=== PATIENT | female | born 1970 | race African-American/Black ===

== ENCOUNTER 2016-07-09 20:37 | Inpatient (IN) | payer BC, OTHER ==
[~2016-07-09] VITALS: Ht 165.1 cm; Wt 121.7 kg
[~2016-07-09 20:37] MED LIST: ATEN50TA8 PO; HYDR-3419 PO; HYDR25TA4 PO; LISI-461 PO
[2016-07-09] MEDS ORDERED: SODIUM CHLORIDE 0.9% 1000ML 1,000 ML IV SCH (20:38)
--- NOTE | 2016-07-09 20:55 | DIAGNOSTIC IMAGING REPORT ---
CT SCAN OF THE BRAIN WITHOUT IV CONTRAST CLINICAL HISTORY: Strokelike symptoms. COMPARISON STUDY: No priors. TECHNIQUE: Unenhanced axial CT scan of the brain is performed from the vertex to the skull base. Automated dose control exposure was utilized. CT DOSE: 1333.16 mGy.cm FINDINGS: Brain parenchyma: The brain parenchyma is normal in appearance. There is no hemorrhage, mass effect, or evidence of acute territorial ischemia by CT criteria. Joe-white matter is preserved. No extra-axial fluid collection is seen. Ventricles, sulci, cisterns: Normal in configuration. Intracranial vasculature: The visualized intracranial vasculature at the skull base is normal in appearance. Calvarium: Unremarkable. Sinuses and mastoids: The visualized paranasal sinuses are clear. The mastoid air cells are well pneumatized. Orbits: The bony orbits are grossly intact. IMPRESSION: There is no hemorrhage, mass effect, or evidence of acute territorial ischemia by CT criteria. Electronically signed by: Baldo Chapa M.D. 07/09/2016 8:53 PM Dictated Date/Time: 07/09/2016 8:52 PM
[2016-07-09] MEDS ORDERED: NiCARDipine IV 25 MG in SODIUM CHLORIDE 0.9% 250ML 240 ML IV STA (20:56)
[2016-07-09] MEDS ORDERED: NiCARDipine IV 25 MG in SODIUM CHLORIDE 0.9% 250ML 240 ML IV PRN ×2 (21:00→23:10)
--- NOTE | 2016-07-09 21:00 | EMERGENCY ROOM VISIT NOTE ---
History Report prepared by Jenniffer: Jayy Osullivan Under the Supervision of: Dr. Jimmie Hung D.O. First contact with patient: 20:40 Chief Complaint: STROKE SYMPTOMS Stated Complaint: STROKE ALERT History of Present Illness The patient is a 45 year old female who presents to the Emergency Room with complaints of persistent stroke-like symptoms that started an hour and twenty minutes ago. Per patient's family, the patient started not to act like herself and stare off into space. Then, the patient started to have some facial droop and began to slur her words. Per patient's family, the patient had been complaining of feeling fatigued and feeling nervous earlier in the day. The patient does have a history of hypertension and cholesterol. The patient denies any pain at this time. Per patient's family, there was no seizure-like activity at the onset of her symptoms. Source of History: patient, family Onset: one hour and twenty minutes ago Position: other (global) Timing: other (persistent) Associated Symptoms: + fatigue Note: Other associated symptoms: not looking herself, staring off into space, facial droop, feeling nervous throughout the day Denies: any pain Review of Systems See HPI for pertinent positives & negatives. A total of 10 systems reviewed and were otherwise negative. 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 [employer] Surgical Problems: (1) S/P cholecystectomy Family History Unknown Social History Marital Status: Housing Status: lives with family Occupation Status: employed Current/Historical Medications Scheduled [Blood Pressure], 1 TAB PO DAILY [Cholesterol], 1 TAB PO DAILY Allergies Coded Allergies: Penicillins (Verified Allergy, Unknown, RASH, 07/09/16) Procaine (Unverified Allergy, Unknown, RASH, 07/09/16) Physical Exam Vital Signs Date Time Temp Pulse Resp B/P Pulse Ox O2 Delivery O2 Flow Rate FiO2 07/09/16 22:20 103 30 182/99 93 07/09/16 22:15 37.0 115 18 151/108 96 Room Air 07/09/16 22:15 108 30 170/93 91 07/09/16 22:10 115 23 175/99 92 07/09/16 22:05 107 22 162/101 93 07/09/16 22:00 112 26 151/108 95 5/15/17 21:55 170/93 07/09/16 21:52 108 33 92 07/09/16 21:50 146/97 07/09/16 21:47 108 45 92 07/09/16 21:45 169/107 07/09/16 21:43 200/109 07/09/16 21:42 126 19 218/137 95 07/09/16 21:39 178/120 07/09/16 21:37 109 30 93 07/09/16 21:35 188/115 07/09/16 21:33 37.0 94 18 207/101 96 Room Air 07/09/16 21:32 107 28 92 07/09/16 21:30 203/114 07/09/16 21:27 99 20 96 07/09/16 21:25 200/117 07/09/16 21:22 98 94 07/09/16 21:19 94 Room Air 07/09/16 21:17 96 95 07/09/16 21:16 199/108 07/09/16 21:12 95 207/119 95 07/09/16 21:07 93 96 07/09/16 21:02 86 96 07/09/16 21:01 216/112 07/09/16 20:57 90 07/09/16 20:57 91 95 07/09/16 20:54 207/101 Physical Exam GENERAL: Patient is awake, alert, and somewhat anxious appearing. EYES: The conjunctivae are clear. The pupils are round and reactive. EARS, NOSE, MOUTH AND THROAT: The nose is without any evidence of any deformity. Mucous membranes are moist tongue is midline NECK: The neck is nontender and supple. RESPIRATORY: Normal respiratory effort is noted there is no evidence of wheezing rhonchi or rales CARDIOVASCULAR: Regular rate and rhythm noted there no murmurs rubs or gallops normal S1 normal S2 GASTROINTESTINAL: The abdomen is soft. Bowel sounds are present in all quadrants. Abdomen is nontender MUSCULOSKELETAL/EXTREMITIES: There is no evidence of gross deformity full range of motion is noted in the hips and shoulders SKIN: There is no obvious evidence of any rash. There are no petechiae, pallor or cyanosis noted. 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 Medical Decision & Procedures ER Provider Diagnostic Interpretation: Radiology results as stated below per my review and radiologist interpretation: CT SCAN OF THE BRAIN WITHOUT IV CONTRAST CLINICAL HISTORY: Strokelike symptoms. COMPARISON STUDY: No priors. TECHNIQUE: Unenhanced axial CT scan of the brain is performed from the vertex to the skull base. Automated dose control exposure was utilized. CT DOSE: 1333.16 mGy.cm FINDINGS: Brain parenchyma: The brain parenchyma is normal in appearance. There is no hemorrhage, mass effect, or evidence of acute territorial ischemia by CT criteria. Joe-white matter is preserved. No extra-axial fluid collection is seen. Ventricles, sulci, cisterns: Normal in configuration. Intracranial vasculature: The visualized intracranial vasculature at the skull base is normal in appearance. Calvarium: Unremarkable. Sinuses and mastoids: The visualized paranasal sinuses are clear. The mastoid air cells are well pneumatized. Orbits: The bony orbits are grossly intact. IMPRESSION: There is no hemorrhage, mass effect, or evidence of acute territorial ischemia by CT criteria. Electronically signed by: Baldo Chapa M.D. 07/09/2016 8:53 PM Dictated Date/Time: 07/09/2016 8:52 PM SINGLE VIEW CHEST CLINICAL HISTORY: Strokelike symptoms. FINDINGS: An AP, portable, upright chest radiograph is obtained. No prior studies are available for comparison at the time of dictation. The examination is degraded by portable technique, large body habitus, apical lordotic positioning, and patient rotation. The cardiomediastinal silhouette is unremarkable. The lungs and pleural spaces are clear. No pneumothorax is seen. The bony thorax is grossly intact. IMPRESSION: No active disease in the chest. Electronically signed by: Baldo Chapa M.D. 07/09/2016 9:20 PM Dictated Date/Time: 07/09/2016 9:20 PM Laboratory Results 07/09/16 21:05 Red Blood Count 4.19, Mean Corpuscular Volume 88.5, Mean Corpuscular Hemoglobin 28.9, Mean Corpuscular Hemoglobin Concent 32.6, Mean Platelet Volume 8.3, Neutrophils (%) (Auto) 62.0, Lymphocytes (%) (Auto) 29.7, Monocytes (%) (Auto) 6.0, Eosinophils (%) (Auto) 1.7, Basophils (%) (Auto) 0.2, Neutrophils # (Auto) 6.08, Lymphocytes # (Auto) 2.92, Monocytes # (Auto) 0.59, Eosinophils # (Auto) 0.17, Basophils # (Auto) 0.02 07/09/16 21:05 Test 07/09/16 20:53 07/09/16 21:05 07/09/16 21:14 07/09/16 21:45 Bedside Prothrombin Time INR 1.1 (0.9-1.1) Bedside Glucose 170 mg/dl (70-90) White Blood Count 9.82 K/uL (4.8-10.8) Red Blood Count 4.19 M/uL (4.2-5.4) Hemoglobin 12.1 g/dL (12.0-16.0) Hematocrit 37.1 % (37-47) Mean Corpuscular Volume 88.5 fL (80-100) Mean Corpuscular Hemoglobin 28.9 pg (25-34) Mean Corpuscular Hemoglobin Concent 32.6 g/dl (32-36) Platelet Count 426 K/uL (130-400) Mean Platelet Volume 8.3 fL (7.4-10.4) Neutrophils (%) (Auto) 62.0 % Lymphocytes (%) (Auto) 29.7 % Monocytes (%) (Auto) 6.0 % Eosinophils (%) (Auto) 1.7 % Basophils (%) (Auto) 0.2 % Neutrophils # (Auto) 6.08 K/uL (1.4-6.5) Lymphocytes # (Auto) 2.92 K/uL (1.2-3.4) Monocytes # (Auto) 0.59 K/uL (0.11-0.59) Eosinophils # (Auto) 0.17 K/uL (0-0.5) Basophils # (Auto) 0.02 K/uL (0-0.2) RDW Standard Deviation 41.2 fL (36.4-46.3) RDW Coefficient of Variation 12.8 % (11.5-14.5) Immature Granulocyte % (Auto) 0.4 % Immature Granulocyte # (Auto) 0.04 K/uL (0.00-0.02) Prothrombin Time 10.7 SECONDS (9.0-12.0) Prothromb Time International Ratio 1.0 (0.9-1.1) Activated Partial Thromboplast Time 28.4 SECONDS (21.0-31.0) Partial Thromboplastin Ratio 1.1 Est Creatinine Clear Calc Drug Dose 78.9 ml/min Estimated GFR () 62.8 Estimated GFR (Non- 54.2 BUN/Creatinine Ratio 12.3 (10-20) Calcium Level 9.6 mg/dl (8.5-10.1) Total Creatine Kinase 247 U/L (26-192) Creatine Kinase MB 1.9 ng/ml (0.5-3.6) Creatine Kinase MB Ratio 0.8 (0-3.0) Troponin I < 0.015 ng/ml (0-0.045) Bedside Hemoglobin 12.2 g/dl (12.0-16.0) Bedside Hematocrit 36 % (37-47) Bedside Sodium 141 mEq/L (135-144) Bedside Potassium 4.3 mEq/L (3.3-5.0) Bedside Chloride 101 mEq/L (101-112) Bedside Total CO2 24 mEq/l (24-31) Anion Gap 20.0 mmol/L (16-25) Bedside Blood Urea Nitrogen 14 mg/dl (7-18) Bedside Creatinine 1.1 mg/dl (0.6-1.3) Bedside Glucose (other) 177 mg/dl (70-99) Bedside Ionized Calcium (Alberto) 1.17 mmol/l (1.12-1.32) Urine Color YELLOW Urine Appearance CLOUDY (CLEAR) Urine pH 6.5 (4.5-7.5) Urine Specific [place] 1.016 (1.000-1.030) Urine Protein NEG (NEG) Urine Glucose (UA) NEG (NEG) Urine Ketones NEG (NEG) Urine Occult Blood 3+ (NEG) Urine Nitrite NEG (NEG) Urine Bilirubin NEG (NEG) Urine Urobilinogen NEG (NEG) Urine Leukocyte Esterase MODERATE (NEG) Urine WBC (Auto) 10-30 /hpf (0-5) Urine RBC (Auto) 5-10 /hpf (0-4) Urine Hyaline Casts (Auto) 1-5 /lpf (0-5) Urine Epithelial Cells (Auto) >30 /lpf (0-5) Urine Bacteria (Auto) NEG (NEG) Urine Opiates Screen NEG (NEG) Urine Methadone, Qualitative NEG (NEG) Urine Barbiturates NEG (NEG) Urine Phencyclidine (PCP) Level NEG (NEG) Ur Amphetamine/Methamphetamine NEG (NEG) MDMA (Ecstasy) Screen NEG (NEG) Urine Benzodiazepines Screen NEG (NEG) Urine Cocaine Metabolite NEG (NEG) Urine Marijuana (THC) NEG (NEG) Laboratory results per my review. Medications Administered Medications (Trade) Dose Ordered Sig/Douglas Route Start Time Stop Time Status Last Admin Dose Admin Nicardipine HCl 25 mg/Sodium Chloride 250 ml @ 0 mls/hr Q0M PRN IV 07/09/16 21:00 07/09/16 23:23 DC 07/09/16 21:15 5 MLS/HR Alteplase, Recombinant 81 mg/ Empty Bag 81 ml @ 81 mls/hr TODAY@2114 IV 07/09/16 21:15 07/09/16 22:14 DC 07/09/16 21:54 81 MLS/HR Alteplase, Recombinant/ Syringe (Activase Inj/ Syringe) 18 ml @ 9 mls/min TODAY@2114 IV 07/09/16 21:15 07/09/16 21:16 DC 07/09/16 21:54 9 MLS/MIN ECG Indication: other Rate (beats per minute): 94 Rhythm: normal sinus Findings: no ectopy, other (no acute ST segment abnormality, LCH noted by voltage criteria) Comparison ECG Date: Increased rate otherwise no change from June 27, 2012. ED Course 2051: The patient was evaluated in room A1. A complete history and physical examination were performed. 2037: Ordered NSS 1000 ml @ 50 mls/hr IV. 2052: At this time, I discussed the patient's case with Dr. Rosenthal - Neurology Telemedicine [facility] and he evaluated the patient. 2055: Ordered Nicardipine HCl 25 mg/ NSS 250 ml @ 0 mls/hr IV. 2099: Ordered Nicardipine HCl 25 mg/ NSS 250 ml @ 0 mls/hr IV. 2100: At this time, TPA was ordered. 2114: Ordered Alteplase Recombinant 9 mg/ Syringe 18 ml @ 9 mls/min IV, Alteplase Recombinant 81 mg/ Empty Bag 81 ml @ 81 mls/hr IV. 2144: Ordered Ativan Inj 0.5 mg IV, Ativan Inj 2 mg .ROUTE, Labetalol HCl 20 mg IV. 2149: At this time, TPA was administered to the patient. 2154: At this time, I discussed the patient's case with Dr. Rosenthal - Neurology Telemedicine [facility] and he recommended admitting the patient to medicine for treatment and continuing a further stroke work-up as a patient. 2213: At this time, I discussed the patient's case with Dr. Avalos - [facility] and he agreed to accept the patient for further evaluation. Medical Decision Differential diagnosis: Etiologies such as metabolic, infection, hypo/hyperglycemia, electrolyte abnormalities, cardiac sources, intracerebral event, toxicologic, neurologic, as well as others were entertained. Nursing notes reviewed. Additional history is obtained from the EMS providers. The patient is a 45-year-old female who presented to the emergency department with strokelike syndrome. The patient had an acute onset of slurred speech left facial droop and left upper and lower extremity weakness. The patient presented to the emergency department within 3 hours of her symptoms. Initial CAT scan did not show any acute hemorrhage. Because of the patient's symptoms and her history I do feel this is consistent with an ischemic stroke. For this reason she was made a heart alert prior to arrival and was evaluated by the [facility] tele stroke neurologist. The patient was found have very elevated blood pressure in this was controlled with IV blood pressure medications. When her blood pressure was improved she was felt to be a good candidate for TPA. This was started in the emergency department. She was reevaluated multiple times. I discussed patient's laboratory and radiographic studies with her and her family members. She was also consented for the TPA and she understands the risks and benefits of this medication. I discussed his case with the on-call [facility] hospitalist group. They've agreed to evaluate the patient in the emergency department for further management and disposition. Consults Time Called: 2047 Consulting Physician: Dr. Rosenthal - Neurology Telemedicine [facility] Returned Call: [phone] At this time, I discussed the patient's case with Dr. Rosenthal and he evaluated the patient. Additional Consults: Time Called: 2149 Consulted Physician: Dr. Rosenthal - Neurology Telemedicine [facility] Returned Call: [phone] Additional Comments: At this time, I discussed the patient's case with and he recommended admitting the patient to medicine for treatment and continuing a further stroke work-up as a patient. Time Called: 2208 Consulted Physician: Dr. Avalos - Hospitalist [facility] Returned Call: [phone] Additional Comments: At this time, I discussed the patient's case with Dr. Avalos and he agreed to accept the patient for further evaluation. Impression Primary Impression: Acute CVA (cerebrovascular accident) Critical Care I have personally spent greater than 60 minutes of critical care time in the direct management of this patient. This includes bedside care, interpretation of diagnostic studies, and testing, discussion with consultants, patient, and family members, and other required patient management activities. This 60 minutes is in excess of all separately billable procedures. Scribe Attestation The scribe's documentation has been prepared under my direction and personally reviewed by me in its entirety. I confirm that the note above accurately reflects all work, treatment, procedures, and medical decision making performed by me. Departure Information Dispostion Being Evaluated By Hospitalist Referrals No Doctor, Assigned (PCP) Stroke History Time Last Known Well 193 Stroke t-PA Criteria Reviewed Meets criteria for t-PA Reason t-PA Not Given Treatment provided - N/A
[2016-07-09] MEDS ORDERED: CHOLESTEROL PO (21:10)
[2016-07-09] MEDS ORDERED: BLOOD PRESSURE PO (21:10)
[2016-07-09] MEDS ORDERED: SET 2260-0500 IV ONE (21:15)
[2016-07-09] MEDS ORDERED: ALTEPLASE IV SCH (21:15)
[2016-07-09] MEDS ORDERED: RECOMBINANT IV SCH (21:15)
[2016-07-09] MEDS ORDERED: ALTEPLASE, RECOMBINANT INJ 81 MG in EMPTY BAG 0 ML IV SCH (21:15)
[2016-07-09 21:19] LABS: BASO % 0.2 %; BASO ABS # 0.02 K/uL (0-0.2); COMPLETE YES; EOS % 1.7 %; HEMATOCRIT 37.1 % (37-47); IG% 0.4 %; LYMPH % 29.7 %; LYMPH ABS # 2.92 K/uL (1.2-3.4); MEAN CELL VOLUME 88.5 fL (80-100); MEAN CORPUSCULAR HEMOGLOBIN 28.9 pg (25-34); MEAN CORPUSCULAR HGB CONC 32.6 g/dl (32-36); MEAN PLATELET VOLUME 8.3 fL (7.4-10.4); PLATELET COUNT 426 K/uL (130-400); RED BLOOD COUNT 4.19 M/uL (4.2-5.4); WHITE BLOOD COUNT 9.82 K/uL (4.8-10.8)
--- NOTE | 2016-07-09 21:21 | DIAGNOSTIC IMAGING REPORT ---
SINGLE VIEW CHEST CLINICAL HISTORY: Strokelike symptoms. FINDINGS: An AP, portable, upright chest radiograph is obtained. No prior studies are available for comparison at the time of dictation. The examination is degraded by portable technique, large body habitus, apical lordotic positioning, and patient rotation. The cardiomediastinal silhouette is unremarkable. The lungs and pleural spaces are clear. No pneumothorax is seen. The bony thorax is grossly intact. IMPRESSION: No active disease in the chest. Electronically signed by: Baldo Chapa M.D. 07/09/2016 9:20 PM Dictated Date/Time: 07/09/2016 9:20 PM
[2016-07-09 21:28] LABS: ISTAT CREATININE 1.1 mg/dl (0.6-1.3); ISTAT HEMOGLOBIN 12.2 g/dl (12.0-16.0); ISTAT IONIZED CALCIUM 1.17 mmol/l (1.12-1.32)
[2016-07-09 21:30] LABS: PARTIAL THROMBOPLASTIN RATIO 1.1; PROTHROMBIN TIME (PATIENT) 10.7 SECONDS (9.0-12.0)
[2016-07-09 21:34] LABS: BLOOD UREA NITROGEN 15 mg/dl (7-18); BUN/CREATININE RATIO 12.3 (10-20); CARBON DIOXIDE 28 mmol/L (21-32); CHLORIDE 105 mmol/L (98-107); GLUCOSE 174 mg/dl (70-99); POTASSIUM 4.3 mmol/L (3.5-5.1); SODIUM 141 mmol/L (136-145)
[2016-07-09 21:40] LABS: CKMB/CK RATIO 0.8 (0-3.0)
[2016-07-09] MEDS ORDERED: LORAZEPAM 2 MG/ML 1 ML VIAL IV STA (21:45)
[2016-07-09] MEDS ORDERED: LABETALOL HCL IV 5 MG/ML 20ML IV STA (21:46)
[2016-07-09] MEDS ORDERED: LORAZEPAM 2 MG/ML 1 ML VIAL ONE (21:46)
[2016-07-09 21:58] LABS: CALCIUM 9.6 mg/dl (8.5-10.1)
[2016-07-09 22:02] LABS: URINE APPEARANCE CLOUDY (CLEAR); URINE BILIRUBIN NEG (NEG); URINE COLOR YELLOW; URINE EPITHELIAL CELL AUTO >30 /lpf (0-5); URINE NITRITE NEG (NEG); URINE PH 6.5 (4.5-7.5); URINE SPECIFIC GRAVITY 1.016 (1.000-1.030); UROBILINOGEN NEG (NEG); ZZUR CULT IF INDIC CLEAN CATCH YES
[2016-07-09 22:06] LABS: MANUAL MICROSCOPIC REQUIRED? NO; REVIEW REQ? NO
[2016-07-09 22:15] VITALS: BP 151/108; PULSE 115; TEMP 37; O2SAT 96; BMI 46.8
[2016-07-09 22:26] LABS: BENZODIAZEPINE, URINE NEG (NEG); COCAINE,URINE NEG (NEG); PHENCYCLIDINE, URINE NEG (NEG)
[2016-07-09] MEDS ORDERED: PHARMACIST DISCHARGE MED REC CONSULT PRN ×3 (22:30→23:00)
[2016-07-09 23:12] VITALS: BP 144/93; PULSE 115; TEMP 37; O2SAT 92
[2016-07-09 23:30] VITALS: BP 143/81; PULSE 102; O2SAT 93
--- NOTE | 2016-07-09 23:31 | History and Physical ---
History & Physical Date & Time of Service: July 09, 2016 at 22:43 Chief Complaint: Stroke Alert Primary Care Physician: No Doctor, Assigned History of Present Illness Source: patient, hospital records Mrs Vazquez is a 45 year old female who presented to the ER as a stroke alert after developing slurred speech, left upper extremity weakness and left facial droop around 19:30. She called EMS and in the ER was hypertensive. After labetalol and nicardipine given she was determined to be a candidate for tPA. She notes since given tPA in the ER her slurred speech and left facial droop have improved but she has not noticed a difference in her left upper extremity weakness. She notes having uncontrolled hypertension since her 20's and regularly runs over 200 in the PCPs office. She gets intermittent sweating and vision blurring when her blood pressure does run high. She is due a workup for obstructive sleep apnea but does not think she has had any other workup for secondary causes of hypertension. She also notes getting short of breath on exertion and cannot walk a mile without becoming short of breath. 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 She notes recent testing for diabetes was negative. She denies smoking. She has not had any previous stroke, DVT or PE. Past Medical/Surgical History Medical Problems: (1) Fibroids Status: Resolved (2) Hyperlipidemia Status: Chronic (3) Hypertension Status: Chronic Surgical Problems: (1) S/P cholecystectomy Status: Resolved Family History Unknown No family history of stroke, ME, DVT/PE, sarcoidosis, secondary hypertension, sade's, edel disease Social History Smoking Status: Never Smoker Marital Status: Housing status: lives with family Occupational Status: employed Allergies Coded Allergies: Penicillins (Verified Allergy, Unknown, RASH, 07/09/16) Procaine (Unverified Allergy, Unknown, RASH, 07/09/16) Home Medications Scheduled Atorvastatin Calcium (Lipitor), 1 TAB PO DAILY Valsartan/Hctz (Diovan Hct 160MG/12.5MG), 1 TAB PO DAILY [Blood Pressure], 1 TAB PO DAILY [Cholesterol], 1 TAB PO DAILY Review of Systems Constitutional: No chills, No fever Respiratory: + cough (productive for the last month), + dyspnea on exertion ( see HPI) Cardiovascular: + palpitations (intermittent when she has increased stress without associated symptoms), No PND, No chest pain, No claudication, No edema, No orthopnea Abdomen: No GI bleeding, No constipation, No diarrhea, No nausea, No pain, No vomiting Genitourinary - Female: + dysmenorrhea (irregular periods since having her fibroids removed), No dysuria, No hematuria, No urinary frequency, No urinary incontinence, No urinary retention, No urinary urgency Neurologic: + problem reported (see HPI), + weakness (LUE), No balance problems , No numbness/tingling Psychiatric: No substance abuse Endocrine: No excessive thirst, No excessive urination, No fatigue Hematologic / Lymphatic: No abnormal bleeding/bruising (irregular period noted above) Integumentary: No itch, No rash Physical Exam Vital Signs Date Time Temp Pulse Resp B/P Pulse Ox O2 Delivery O2 Flow Rate FiO2 07/09/16 22:26 167/91 07/09/16 22:25 104 29 93 07/09/16 22:20 103 30 182/99 93 07/09/16 22:15 37.0 115 18 151/108 96 Room Air 07/09/16 22:15 108 30 170/93 91 07/09/16 22:10 115 23 175/99 92 07/09/16 22:05 107 22 162/101 93 07/09/16 22:00 112 26 151/108 95 07/09/16 21:55 170/93 07/09/16 21:52 108 33 92 07/09/16 21:50 146/97 07/09/16 21:47 108 45 92 07/09/16 21:45 169/107 07/09/16 21:43 200/109 07/09/16 21:42 126 19 218/137 95 07/09/16 21:39 178/120 07/09/16 21:37 109 30 93 07/09/16 21:35 188/115 07/09/16 21:33 37.0 94 18 207/101 96 Room Air 07/09/16 21:32 107 28 92 07/09/16 21:30 203/114 07/09/16 21:27 99 20 96 07/09/16 21:25 200/117 07/09/16 21:22 98 94 07/09/16 21:19 94 Room Air 07/09/16 21:17 96 95 07/09/16 21:16 199/108 07/09/16 21:12 95 207/119 95 07/09/16 21:07 93 96 07/09/16 21:02 86 96 07/09/16 21:01 216/112 07/09/16 20:57 90 07/09/16 20:57 91 95 07/09/16 20:54 207/101 General Appearance: no apparent distress, + obese (morbidly) Head: normocephalic, atraumatic Eyes: normal inspection, PERRL, EOMI (although she does not maintain eye contact with talking) Neck: no carotid bruits, trachea midline Respiratory/Chest: chest non-tender, lungs clear, normal breath sounds (quiet likely due to body habitus), no respiratory distress, no accessory muscle use Cardiovascular: regular rate, rhythm, no edema, no murmur, normal peripheral pulses Abdomen/GI: normal bowel sounds, non tender, soft, + pertinent finding (obese) Back: no CVA tenderness Extremities/Musculoskelatal: no calf tenderness, normal capillary refill, no pedal edema, normal range of motion Neurologic/Psych: alert, oriented x 3, + abnormal customs and immigration officer II-XII (mild left sided facial droop and slurring of speech which she reports has been improving, difficulty with ka, ka, ka on speech examination, unable to assess uvula due to tongue size), + motor weakness, + depressed affect (blank) Skin: normal color, warm/dry, no rash Diagnostics Laboratory Results Results Past 24 Hours Test 07/09/16 20:53 07/09/16 21:05 07/09/16 21:14 07/09/16 21:45 Range/Units Bedside Prothrombin Time INR 1.1 0.9-1.1 Bedside Glucose 170 70-90 mg/dl White Blood Count 9.82 4.8-10.8 K/uL Red Blood Count 4.19 4.2-5.4 M/uL Hemoglobin 12.1 12.0-16.0 g/dL Hematocrit 37.1 37-47 % Mean Corpuscular Volume 88.5 80-100 fL Mean Corpuscular Hemoglobin 28.9 25-34 pg Mean Corpuscular Hemoglobin Concent 32.6 32-36 g/dl Platelet Count 426 130-400 K/uL Mean Platelet Volume 8.3 7.4-10.4 fL Neutrophils (%) (Auto) 62.0 % Lymphocytes (%) (Auto) 29.7 % Monocytes (%) (Auto) 6.0 % Eosinophils (%) (Auto) 1.7 % Basophils (%) (Auto) 0.2 % Neutrophils # (Auto) 6.08 1.4-6.5 K/uL Lymphocytes # (Auto) 2.92 1.2-3.4 K/uL Monocytes # (Auto) 0.59 0.11-0.59 K/uL Eosinophils # (Auto) 0.17 0-0.5 K/uL Basophils # (Auto) 0.02 0-0.2 K/uL RDW Standard Deviation 41.2 36.4-46.3 fL RDW Coefficient of Variation 12.8 11.5-14.5 % Immature Granulocyte % (Auto) 0.4 % Immature Granulocyte # (Auto) 0.04 0.00-0.02 K/uL Prothrombin Time 10.7 9.0-12.0 SECONDS Prothromb Time International Ratio 1.0 0.9-1.1 Activated Partial Thromboplast Time 28.4 21.0-31.0 SECONDS Partial Thromboplastin Ratio 1.1 Sodium Level 141 136-145 mmol/L Potassium Level 4.3 3.5-5.1 mmol/L Chloride Level 105 98-107 mmol/L Carbon Dioxide Level 28 21-32 mmol/L Anion Gap 8.0 20.0 16-25 mmol/L Blood Urea Nitrogen 15 7-18 mg/dl Creatinine 1.20 0.60-1.20 mg/dl Est Creatinine Clear Calc Drug Dose 78.9 ml/min Estimated GFR () 62.8 Estimated GFR (Non- 54.2 BUN/Creatinine Ratio 12.3 10-20 Random Glucose 174 70-99 mg/dl Calcium Level 9.6 8.5-10.1 mg/dl Total Creatine Kinase 247 26-192 U/L Creatine Kinase MB 1.9 0.5-3.6 ng/ml Creatine Kinase MB Ratio 0.8 0-3.0 Troponin I < 0.015 0-0.045 ng/ml Bedside Hemoglobin 12.2 12.0-16.0 g/dl Bedside Hematocrit 36 37-47 % Bedside Sodium 141 135-144 mEq/L Bedside Potassium 4.3 3.3-5.0 mEq/L Bedside Chloride 101 101-112 mEq/L Bedside Total CO2 24 24-31 mEq/l Bedside Blood Urea Nitrogen 14 7-18 mg/dl Bedside Creatinine 1.1 0.6-1.3 mg/dl Bedside Glucose (other) 177 70-99 mg/dl Bedside Ionized Calcium ([place]) 1.17 1.12-1.32 mmol/l Urine Color YELLOW Urine Appearance CLOUDY CLEAR Urine pH 6.5 4.5-7.5 Urine Specific [place] 1.016 1.000-1.030 Urine Protein NEG NEG Urine Glucose (UA) NEG NEG Urine Ketones NEG NEG Urine Occult Blood 3+ NEG Urine Nitrite NEG NEG Urine Bilirubin NEG NEG Urine Urobilinogen NEG NEG Urine Leukocyte Esterase MODERATE NEG Urine WBC (Auto) 10-30 0-5 /hpf Urine RBC (Auto) 5-10 0-4 /hpf Urine Hyaline Casts (Auto) 1-5 0-5 /lpf Urine Epithelial Cells (Auto) >30 0-5 /lpf Urine Bacteria (Auto) NEG NEG Urine Opiates Screen NEG NEG Urine Methadone, Qualitative NEG NEG Urine Barbiturates NEG NEG Urine Phencyclidine (PCP) Level NEG NEG Ur Amphetamine/Methamphetamine NEG NEG MDMA (Ecstasy) Screen NEG NEG Urine Benzodiazepines Screen NEG NEG Urine Cocaine Metabolite NEG NEG Urine Marijuana (THC) NEG NEG Microbiology Results 07/09/16 Urine Culture, Received Pending Diagnostic Radiology SINGLE VIEW CHEST CLINICAL HISTORY: Strokelike symptoms. FINDINGS: An AP, portable, upright chest radiograph is obtained. No prior studies are available for comparison at the time of dictation. The examination is degraded by portable technique, large body habitus, apical lordotic positioning, and patient rotation. The cardiomediastinal silhouette is unremarkable. The lungs and pleural spaces are clear. No pneumothorax is seen. The bony thorax is grossly intact. IMPRESSION: No active disease in the chest. Electronically signed by: Baldo Chapa M.D. 07/09/2016 9:20 PM Dictated Date/Time: 07/09/2016 9:[address] SCAN OF THE BRAIN WITHOUT IV CONTRAST CLINICAL HISTORY: Strokelike symptoms. COMPARISON STUDY: No priors. TECHNIQUE: Unenhanced axial CT scan of the brain is performed from the vertex to the skull base. Automated dose control exposure was utilized. CT DOSE: 1333.16 mGy.cm FINDINGS: Brain parenchyma: The brain parenchyma is normal in appearance. There is no hemorrhage, mass effect, or evidence of acute territorial ischemia by CT criteria. Joe-white matter is preserved. No extra-axial fluid collection is seen. Ventricles, sulci, cisterns: Normal in configuration. Intracranial vasculature: The visualized intracranial vasculature at the skull base is normal in appearance. Calvarium: Unremarkable. Sinuses and mastoids: The visualized paranasal sinuses are clear. The mastoid air cells are well pneumatized. Orbits: The bony orbits are grossly intact. IMPRESSION: There is no hemorrhage, mass effect, or evidence of acute territorial ischemia by CT criteria. Electronically signed by: Baldo Chapa M.D. 07/09/2016 8:53 PM Dictated Date/Time: 07/09/2016 8:52 PM EKG 108 bpm, Sinus tachycardia, LVH, Non specific T wave abnormality Impression Assessment and Plan 45 year old with uncontrolled hypertension and hyperlipidemia presents to the ER left sided facial droop and slurred speech s/p stroke call with administration of tPA at 3 hours 20 minutes post symptoms (21:52 07/09/16). CVA s/p tPA - recommendations based on [facility] neurologist Dr Rosenthal - admit to ICU, discussed with green feed attendant Dr Callejas - MRI brain combo, MRA head, MRA neck combo - CT head 24 hours after initial scan - Stroke protocol for neuro checks s/p tPA protocol - CBC, CMP. lipid profile, coags, UA, HbA1C - EKG + echo - NPO until Speech consult - IVF overnight - aim glucose <150 - keep sBP <180 dBP <105 post tPA treatment - Consult neurology Hypertension - aim BP <180 and dBP <105 as above, started on nicardipine drip in the ER so will continue this as current controlling BP well. - hold home medications, she was on three medications as outpatient but unsure exactly which ones currently - will need workup for secondary causes of hypertension, likely she has some PRITI and has a sleep study pending for this. Hyperlipidemia - atorvastatin 80mg PO daily Shortness of breath on exertion - Deconditioning vs. obesity hypoventilation vs. PRITI vs. heart failure. She will be getting a resting echocardiogram and likely has some LVH as per EKG. Consider outpatient stress echo if resting echo is normal. VTE Prophylaxis - SCDs for first [address] head Code - Full Disposition - admit to ICU Level of Care Critical Care Advanced Directives Existing Living Will: No Existing Power of Marble Polisher Hand: No Resuscitation Status FULL RESUSCITATION VTE Prophylaxis VTE Risk Assessment Done? Y/N: Yes Risk Level: Moderate Given or contraindicated: SCD's, Contraindicated (tPA administration, no anticogulation in first 24 hours) Resident Tracking Resident Involvement: Resident Care Provided Care Provided: Adult [facility] Medicine Assessment and Plan Attending Addendum: I have physically seen and examined this patient, have directed their medical care, have supervised the medical residents activities, and agree with the H&P as noted above, with the following changes: NONE
[2016-07-09 23:45] VITALS: BP 140/71; PULSE 98; O2SAT 92
[2016-07-10] VITALS (77 sets, daily range): BP systolic 94–189; BP diastolic 41–126; PULSE 67–108; TEMP 36.7–37; O2SAT 90–99
[2016-07-10] MEDS ORDERED: INSULIN REGULAR IV SCH (00:15)
[2016-07-10] MEDS: SODIUM CHLORIDE 0.9% 1000ML 1,000 ML IV SCH ×2 (00:15→19:52)
[2016-07-10 06:31] LABS: BASO % 0.3 %; BASO ABS # 0.03 K/uL (0-0.2); COMPLETE YES; EOS % 1.6 %; HEMATOCRIT 36.7 % (37-47); IG% 0.3 %; LYMPH % 29.5 %; LYMPH ABS # 2.93 K/uL (1.2-3.4); MEAN CORPUSCULAR HEMOGLOBIN 29.2 pg (25-34); MEAN CORPUSCULAR HGB CONC 32.4 g/dl (32-36); MEAN PLATELET VOLUME 8.4 fL (7.4-10.4); MONO % 4.3 %; PLATELET COUNT 426 K/uL (130-400); RED BLOOD COUNT 4.08 M/uL (4.2-5.4); WHITE BLOOD COUNT 9.93 K/uL (4.8-10.8)
[2016-07-10 06:39] LABS: PROTHROMBIN TIME (PATIENT) 10.6 SECONDS (9.0-12.0)
[2016-07-10 07:05] LABS: ALT/SGPT 21 U/L (12-78); AST/SGOT 11 U/L (15-37); BLOOD UREA NITROGEN 18 mg/dl (7-18); BUN/CREATININE RATIO 16.6 (10-20); CALCIUM 9.1 mg/dl (8.5-10.1); CARBON DIOXIDE 28 mmol/L (21-32); CHLORIDE 106 mmol/L (98-107); GLUCOSE 130 mg/dl (70-99); POTASSIUM 4.3 mmol/L (3.5-5.1); SODIUM 140 mmol/L (136-145)
[2016-07-10 07:10] LABS: ALB/GLOB RATIO 0.8 (0.9-2); ALKALINE PHOSPHATASE 72 U/L (45-117); CHOLESTEROL 228 mg/dl (0-200); CHOLESTEROL/HDL RATIO 3.7; HDL CHOLESTEROL 62 mg/dl; LDL CHOLESTEROL CALCULATED 140 mg/dl; TRIGLYCERIDES 129 mg/dl (0-150); VERY LOW DENSITY LIPOPROT CALC 26 mg/dl
[2016-07-10 07:18] LABS: ESTIMATED AVERAGE GLUCOSE 137 mg/dl; HA1C FLAG Normal (Normal)
--- NOTE | 2016-07-10 11:17 | Neurology Consultation ---
Neurology Consultation Date of Consultation: July 10, 2016. Attending Physician: Abran Hong D.O. Primary Care Physician: No Doctor, Assigned Reason for Consultation: Stroke History of Present Illness Source: patient, hospital records The patient is a 45-year-old female who was admitted to the hospital yesterday for further evaluation and treatment of a probable stroke. She had presented to the emergency department with a complaint of left arm weakness that began about 90 minutes prior to arrival. She was noted to have a left facial droop and associated slurred speech as well. Past medical history notable for poorly controlled hypertension. Her blood pressure was 207/101 at the time of presentation. I reviewed the images and radiologist's impression of her CT of the head. The study is negative for hemorrhage or other acute abnormalities. A tele-stroke consultation was obtained and TPA was administered. She has subsequently been admitted to the intensive care unit for further monitoring and treatment. The patient continues to complain of left upper extremity weakness. She has been having subtle difficulty with swallowing as well. She denies headache. Past Medical/Surgical History Medical Problems: (1) Acute CVA (cerebrovascular accident) Status: Acute Family History No known family history of neurological disease or illness that would place this patient at increased risk for additional diagnoses or problems in the context of her current hospitalization. Social History Smoking Status: Never smoker Marital Status: Housing Status: lives with family Occupation Status: employed Allergies Coded Allergies: Penicillins (Verified Allergy, Unknown, RASH, 07/09/16) Procaine (Unverified Allergy, Unknown, RASH, 07/09/16) Current Inpatient Medications Current Inpatient Medications Medications (Trade) Dose Ordered Sig/Douglas Route Start Time Stop Time Status Last Admin Dose Admin Miscellaneous Information (Pharmacist Discharge Med Rec Consult) 1 ea UD PRN N/A 07/09/16 22:30 08/08/16 22:29 Atorvastatin Calcium 80 mg 80 mg QAM PO 07/10/16 09:00 08/09/16 08:59 Sodium Chloride (Nss 1000ml) 1,000 ml @ 50 mls/hr Q20H IV 07/10/16 00:15 08/09/16 00:14 07/10/16 00:15 50 MLS/HR Review of Systems Patient denies headache, fever, chills, vision change, hearing change, chest pain, palpitations, shortness of breath, coughing, wheezing, abdominal pain, diarrhea, dysuria, incontinence, muscle pain, joint pain, swollen glands, abnormal bruising or bleeding, depression, or anxiety. A full 10 point review of systems was obtained from this patient with pertinent positives and negatives identified in the history of present illness and otherwise listed above. Physical Exam Vital Signs (Past 24 Hrs): Date Time Temp Pulse Resp B/P Pulse Ox O2 Delivery O2 Flow Rate FiO2 07/10/16 10:30 36.8 70 21 151/98 97 Room Air 07/10/16 10:00 36.8 84 20 130/85 97 07/10/16 09:45 84 20 97 07/10/16 09:31 72 23 130/85 95 07/10/16 09:30 36.8 76 22 130/85 98 Room Air 07/10/16 09:30 75 24 94 07/10/16 09:29 76 15 136/81 95 07/10/16 09:15 75 22 90 07/10/16 09:12 80 12 137/89 91 07/10/16 09:00 98 18 93 07/10/16 08:58 78 24 170/106 94 07/10/16 08:52 72 20 144/93 94 07/10/16 08:45 70 23 94 07/10/16 08:31 84 14 138/90 96 07/10/16 08:30 36.8 96 20 138/90 98 Room Air 07/10/16 08:30 99 15 95 07/10/16 08:15 75 19 93 07/10/16 08:00 98 Room Air 07/10/16 08:00 98 07/10/16 08:00 75 19 137/77 94 07/10/16 07:45 77 16 99 07/10/16 07:31 78 26 117/93 98 07/10/16 07:30 78 42 98 07/10/16 07:30 36.7 75 24 117/93 98 Room Air 07/10/16 07:15 69 18 98 07/10/16 07:00 76 22 112/81 98 07/10/16 06:31 73 21 100/69 98 07/10/16 06:31 73 21 100/69 98 07/10/16 06:30 74 22 97 07/10/16 06:30 74 22 97 07/10/16 06:15 74 21 97 5/16/17 06:15 74 21 97 5/16/17 06:01 77 19 110/70 97 5/16/17 06:01 77 19 110/70 97 5/16/17 06:00 73 20 97 5/16/17 06:00 73 20 97 5/16/17 05:45 75 19 97 5/16/17 05:45 75 19 97 5/16/17 05:30 76 19 130/76 97 5/16/17 05:30 76 19 130/76 97 5/16/17 05:15 80 23 99 5/16/17 05:15 80 23 99 5/16/17 05:01 77 20 101/66 97 5/16/17 05:01 77 20 101/66 97 5/16/17 05:00 77 20 98 5/16/17 05:00 77 20 98 5/16/17 04:36 73 22 96/71 5/16/17 04:36 73 22 96/71 5/16/17 04:30 37.0 74 22 Nasal Cannula 2.0 5/16/17 04:30 75 20 98 5/16/17 04:15 78 19 99 5/16/17 04:15 78 19 99 5/16/17 04:00 75 20 98 5/16/17 04:00 98 Nasal Cannula 2.0 5/16/17 04:00 75 20 98 5/16/17 04:00 106 32 94 5/16/17 04:00 37.0 74 32 127/71 98 Nasal Cannula 2.0 5/16/17 04:00 75 20 98 5/16/17 03:45 92 12 98 5/16/17 03:36 97 14 127/71 96 5/16/17 03:31 78 34 94/41 97 5/16/17 03:30 80 35 97 5/16/17 03:15 85 20 97 5/16/17 03:00 85 21 123/58 96 5/16/17 02:45 84 23 97 5/16/17 02:31 88 21 108/67 98 5/16/17 02:30 85 21 97 5/16/17 02:15 88 21 98 5/16/17 02:00 107 22 150/85 97 5/16/17 01:45 90 24 95 Nasal Cannula 2.0 5/16/17 01:45 90 24 95 5/16/17 01:31 91 22 147/85 96 Nasal Cannula 2.0 07/10/16 01:31 91 22 147/85 96 16 01:30 89 23 95 Nasal Cannula 2.0 07/10/16 01:30 89 23 95 16 01:15 85 20 97 Nasal Cannula 2.0 07/10/16 01:15 85 20 97 07/10/16 01:00 96 24 143/87 93 07/10/16 01:00 96 24 143/87 93 Room Air 07/10/16 00:45 100 24 91 Room Air 07/10/16 00:45 100 24 91 07/10/16 00:30 108 32 165/97 95 07/10/16 00:30 108 32 165/97 95 Room Air 07/10/16 00:15 94 20 94 07/10/16 00:15 94 20 94 Room Air 07/10/16 00:01 102 26 146/79 92 Room Air 07/10/16 00:01 102 26 146/79 92 07/10/16 00:00 36.9 106 32 94 Room Air 07/10/16 00:00 106 32 94 07/10/16 00:00 94 Room Air 07/09/16 23:45 98 24 140/71 92 07/09/16 23:45 98 24 140/71 92 Room Air 07/09/16 23:30 102 24 143/81 93 07/09/16 23:30 102 24 143/81 93 Room Air 07/09/16 23:12 37.0 115 27 144/93 92 Room Air 07/09/16 23:00 37.0 96 27 144/93 92 07/09/16 22:56 96 27 92 07/09/16 22:55 144/93 07/09/16 22:51 106 26 94 07/09/16 22:46 101 21 95 07/09/16 22:45 157/91 07/09/16 22:41 101 28 91 07/09/16 22:40 163/97 07/09/16 22:36 102 31 91 07/09/16 22:35 144/89 07/09/16 22:31 100 30 93 07/09/16 22:26 167/91 07/09/16 22:25 104 29 93 07/09/16 22:20 103 30 182/99 93 5/15/17 22:15 37.0 115 18 151/108 96 Room Air 07/09/16 22:15 108 30 170/93 91 07/09/16 22:10 115 23 175/99 92 07/09/16 22:05 107 22 162/101 93 07/09/16 22:00 112 26 151/108 95 07/09/16 21:55 170/93 07/09/16 21:52 108 33 92 07/09/16 21:50 146/97 07/09/16 21:47 108 45 92 07/09/16 21:45 169/107 07/09/16 21:43 200/109 07/09/16 21:42 126 19 218/137 95 07/09/16 21:39 178/120 07/09/16 21:37 109 30 93 07/09/16 21:35 188/115 07/09/16 21:33 37.0 94 18 207/101 96 Room Air 07/09/16 21:32 107 28 92 07/09/16 21:30 203/114 07/09/16 21:27 99 20 96 07/09/16 21:25 200/117 07/09/16 21:22 98 94 07/09/16 21:19 94 Room Air 07/09/16 21:17 96 95 07/09/16 21:16 199/108 07/09/16 21:12 95 207/119 95 07/09/16 21:07 93 96 07/09/16 21:02 86 96 07/09/16 21:01 216/112 07/09/16 20:57 90 07/09/16 20:57 91 95 07/09/16 20:54 207/101 The patient is a well-developed, well-nourished female, no acute distress. Patient is left-handed. She is alert and oriented to person place and time. Attention is slightly impaired. Recent and remote memory intact. Patient is able to name objects, repeat phrases, and read simple text. Vocabulary normal. Visual sharif full to confrontation. Pupils equal round reactive to light and accommodation. Eye movements normal. There is a mild left lower facial droop. Facial sensation intact bilaterally. Hearing intact to finger rub bilaterally. Palate elevates to midline. Tongue protrudes to midline. Shoulder shrug strength intact bilaterally. Sensation intact to light touch, temperature, vibration, and proprioception for all 4 limbs. Deep tendon reflexes are slightly increased for the left arm and leg compared to the right. Left plantar response is equivocal, right plantar response downgoing. There is impaired movement initiation for the left arm and leg. There is dysmetria with finger to nose and heel to cam on the left. Fair to nose and heel to cam for the right normal. Ophthalmoscopic examination reveals normal-appearing optic nerves and posterior segments, no papilledema or hemorrhages. Carotid pulses normal bilaterally, no bruits to auscultation. Musculoskeletal examination reveals a left hemiparesis affecting the face arm and leg. Left upper extremity strength 3 out of 5, left lower extremity strength 4 out of 5. Strength for the right arm and leg normal. Muscle tone normal for the arms and legs. No atrophy. No abnormal movements observed. Gait and station not tested due to safety concerns. Laboratory Results Past 24 Hours: 07/10/16 06:10 Red Blood Count 4.08, Mean Corpuscular Volume 90.0, Mean Corpuscular Hemoglobin 29.2, Mean Corpuscular Hemoglobin Concent 32.4, Mean Platelet Volume 8.4, Neutrophils (%) (Auto) 64.0, Lymphocytes (%) (Auto) 29.5, Monocytes (%) (Auto) 4.3, Eosinophils (%) (Auto) 1.6, Basophils (%) (Auto) 0.3, Neutrophils # (Auto) 6.35, Lymphocytes # (Auto) 2.93, Monocytes # (Auto) 0.43, Eosinophils # (Auto) 0.16, Basophils # (Auto) 0.03 07/10/16 06:10 Test 07/09/16 20:53 07/09/16 21:05 07/09/16 21:14 07/09/16 21:45 Bedside Prothrombin Time INR 1.1 (0.9-1.1) Bedside Glucose 170 mg/dl (70-90) Activated Partial Thromboplast Time 28.4 SECONDS (21.0-31.0) Partial Thromboplastin Ratio 1.1 Total Creatine Kinase 247 U/L (26-192) Creatine Kinase MB 1.9 ng/ml (0.5-3.6) Creatine Kinase MB Ratio 0.8 (0-3.0) Bedside Hemoglobin 12.2 g/dl (12.0-16.0) Bedside Hematocrit 36 % (37-47) Bedside Sodium 141 mEq/L (135-144) Bedside Potassium 4.3 mEq/L (3.3-5.0) Bedside Chloride 101 mEq/L (101-112) Bedside Total CO2 24 mEq/l (24-31) Bedside Blood Urea Nitrogen 14 mg/dl (7-18) Bedside Creatinine 1.1 mg/dl (0.6-1.3) Bedside Glucose (other) 177 mg/dl (70-99) Bedside Ionized Calcium (Alberto) 1.17 mmol/l (1.12-1.32) Urine Color YELLOW Urine Appearance CLOUDY (CLEAR) Urine pH 6.5 (4.5-7.5) Urine Specific [place] 1.016 (1.000-1.030) Urine Protein NEG (NEG) Urine Glucose (UA) NEG (NEG) Urine Ketones NEG (NEG) Urine Occult Blood 3+ (NEG) Urine Nitrite NEG (NEG) Urine Bilirubin NEG (NEG) Urine Urobilinogen NEG (NEG) Urine Leukocyte Esterase MODERATE (NEG) Urine WBC (Auto) 10-30 /hpf (0-5) Urine RBC (Auto) 5-10 /hpf (0-4) Urine Hyaline Casts (Auto) 1-5 /lpf (0-5) Urine Epithelial Cells (Auto) >30 /lpf (0-5) Urine Bacteria (Auto) NEG (NEG) Urine Opiates Screen NEG (NEG) Urine Methadone, Qualitative NEG (NEG) Urine Barbiturates NEG (NEG) Urine Phencyclidine (PCP) Level NEG (NEG) Ur Amphetamine/Methamphetamine NEG (NEG) MDMA (Ecstasy) Screen NEG (NEG) Urine Benzodiazepines Screen NEG (NEG) Urine Cocaine Metabolite NEG (NEG) Urine Marijuana (THC) NEG (NEG) Test 07/10/16 06:10 White Blood Count 9.93 K/uL (4.8-10.8) Red Blood Count 4.08 M/uL (4.2-5.4) Hemoglobin 11.9 g/dL (12.0-16.0) Hematocrit 36.7 % (37-47) Mean Corpuscular Volume 90.0 fL (80-100) Mean Corpuscular Hemoglobin 29.2 pg (25-34) Mean Corpuscular Hemoglobin Concent 32.4 g/dl (32-36) Platelet Count 426 K/uL (130-400) Mean Platelet Volume 8.4 fL (7.4-10.4) Neutrophils (%) (Auto) 64.0 % Lymphocytes (%) (Auto) 29.5 % Monocytes (%) (Auto) 4.3 % Eosinophils (%) (Auto) 1.6 % Basophils (%) (Auto) 0.3 % Neutrophils # (Auto) 6.35 K/uL (1.4-6.5) Lymphocytes # (Auto) 2.93 K/uL (1.2-3.4) Monocytes # (Auto) 0.43 K/uL (0.11-0.59) Eosinophils # (Auto) 0.16 K/uL (0-0.5) Basophils # (Auto) 0.03 K/uL (0-0.2) RDW Standard Deviation 42.0 fL (36.4-46.3) RDW Coefficient of Variation 12.9 % (11.5-14.5) Immature Granulocyte % (Auto) 0.3 % Immature Granulocyte # (Auto) 0.03 K/uL (0.00-0.02) Prothrombin Time 10.6 SECONDS (9.0-12.0) Prothromb Time International Ratio 1.0 (0.9-1.1) Anion Gap 6.0 mmol/L (3-11) Est Creatinine Clear Calc Drug Dose 83.0 ml/min Estimated GFR () 69.7 Estimated GFR (Non- 60.2 BUN/Creatinine Ratio 16.6 (10-20) Estimated Average Glucose 137 mg/dl Hemoglobin A1c 6.4 % (4.5-5.6) Calcium Level 9.1 mg/dl (8.5-10.1) Total Bilirubin 0.3 mg/dl (0.2-1) Aspartate Amino Transf (AST/SGOT) 11 U/L (15-37) Alanine Aminotransferase (ALT/SGPT) 21 U/L (12-78) Alkaline Phosphatase 72 U/L (45-117) Troponin I < 0.015 ng/ml (0-0.045) Total Protein 7.5 gm/dl (6.4-8.2) Albumin 3.4 gm/dl (3.4-5.0) Globulin 4.1 gm/dl (2.5-4.0) Albumin/Globulin Ratio 0.8 (0.9-2) Triglycerides Level 129 mg/dl (0-150) Cholesterol Level 228 mg/dl (0-200) HDL Cholesterol 62 mg/dl LDL Cholesterol, Calculated 140 mg/dl VLDL Cholesterol, Calculated 26 mg/dl Cholesterol/HDL Ratio 3.7 Date/Time Source Procedure Growth Status 07/09/16 23:21 Nasal MRSA DNA Surveillance Screen - Final Specimen Negative for MRSA by DNA Probe Complete Impression Probable ischemic right hemispheric stroke producing a left hemiparesis affecting the face and arm slightly greater than the leg. Patient does not have obvious signs of left juventino-neglect. Potential localization includes the [place] radiata versus the posterior limb of the internal capsule on the right. Poorly controlled hypertension would be a likely contributing factor. Patient is status post administration of TPA and seems to be clinically stable although not significantly improved. Plan Continue to monitor patient's neurological status. Plan to start daily aspirin 24 hours after demonstration of TPA. Exclude cardioembolic source. Continue with telemetry, transthoracic echocardiogram. MR angiography of the head and neck as ordered. Patient should also have a hypercoagulable lab panel completed. Continue to monitor/manage patient's hypertension, systolic blood pressure goal 140-160.
[2016-07-10] MEDS ORDERED: FUROSEMIDE 40 MG/4 ML VIAL ONE (11:21)
[2016-07-10] MEDS ORDERED: GADAVIST IV PRN (13:45)
--- NOTE | 2016-07-10 13:48 | DIAGNOSTIC IMAGING REPORT ---
MRI OF THE BRAIN WITHOUT AND WITH IV CONTRAST CLINICAL HISTORY: Stroke, left facial droop, slurred speech mental status change COMPARISON STUDY: No previous studies for comparison. TECHNIQUE: Utilizing a 1.5 Mary Beth magnet and dedicated coil, multiplanar, multiecho imaging of the brain was performed pre and postcontrast administration. IV administration of 12 mL of Gadavist contrast was uneventful. FINDINGS: Limited study technically due to severe patient motion. Findings consistent with acute infarct of the posterior limb of the right internal capsule. No additional acute foci of ischemic change are present. There is component of mild chronic small vessel change of the periventricular deep white matter regions. Ventricular system is midline. IMPRESSION: 1. Acute/subacute infarct posterior limb right internal capsule. 2. Mild chronic small vessel change. 3. Considerable motion artifact due to patient motion Electronically signed by: Bg Hannon M.D. 07/10/2016 1:47 PM Dictated Date/Time: 07/10/2016 1:43 PM
--- NOTE | 2016-07-10 13:51 | ECHOCARDIOGRAM REPORT ---
*NOTICE TO RECEIVING REPUBLICAN AGENCY This information is strictly Confidential and protected under [place] law. [place] law prohibits you from making any further disclosure of this information unless further disclosure is expressly permitted by the written consent of the person to whom it pertains or is authorized by law. A general authorization for the release of medical or other information is not sufficient for this purpose. Hospital accepts no responsibility if the information is made available to any other person, INCLUDING THE PATIENT. Interpretation Summary * Name: RENE CHRISTIANSON Study Date: 07/10/2016 10:05 AM BP: 151/98 mmHg * [facility] HR: 69 * : 1970 (M/d/yyyy) Gender: Female Height: 65 in * Age: 45 yrs Ethnicity: AA Weight: 281 lb * Ordering Physician: Terrell Avalos * Referring Physician: Self, Referred * Performed By: Janet Medley RCS * * Reason For Study: CVA * BSA: 2.3 m2 * -- Conclusions -- * 1. Normal left ventricular size and systolic function. EF 60-65%. No regional wall motion abnormalities. Moderate concentric left ventricular hypertrophy. Type 2 diastolic dysfunction, pseudo normalized pattern. * 2. No visualized ASD or PFO via 2D imaging. No right to left inter atrial shunt visualized following agitated saline injection. * 3. No significant valvular abnormalities. * 4. Normal estimated right ventricular systolic pressure; 23 mmHg. * 5. No prior study available for comparison. Procedure Details * A complete two-dimensional transthoracic echocardiogram was performed (2D, M-mode, Doppler and color flow Doppler). * A saline contrast injection was performed to assess for cardiac shunting. * The injection was performed through an intravenous line in the right arm. * The attending nurse who injected the saline contrast was ANEL ARAMBULA RN. * A total of 20 cc of agitated saline was given. Left Ventricle * The left ventricle is normal in size. * There is moderate concentric left ventricular hypertrophy. * Left ventricular systolic function is normal. * No regional wall motion abnormalities noted. Right Ventricle * The right ventricle is normal in size and function. * The right ventricular systolic function is normal as assessed by tricuspid annular plane systolic excursion (TAPSE) (normal >1.5 cm). Atria * The left atrial size is normal. * Right atrial size is normal. * No visualized ASD or PFO via 2D imaging. No right to left inter atrial shunt visualized following agitated saline injection. Mitral Valve * The mitral valve is normal in structure and function. * There is no mitral valve stenosis. * There is trace mitral regurgitation. Tricuspid Valve * The tricuspid valve is not well visualized, but is grossly normal. * There is no tricuspid stenosis. * There is mild tricuspid regurgitation. Aortic Valve * The aortic valve is trileaflet. * No hemodynamically significant valvular aortic stenosis. * No aortic regurgitation is present. Pulmonic Valve * The pulmonary valve is inadequately visualized, but the Doppler data is adequate for interpretation. * There is no pulmonic valvular stenosis. * There is no significant pulmonary regurgitation. Great Vessels * The aortic root is normal size. * Normal pulmonary venous flow pattern. Pericardium/Pleural * There is no pericardial effusion. Great Vessels * Normal inferior vena cava size and collapsability with sniff indicates a normal right atrial pressure of 3 mmHg MMode 2D Measurements and Calculations IVSd 1.5 cm IVSs 2.1 cm LVIDd 4.7 cm LVIDs 3.0 cm LVPWd 1.5 cm LVPWs 2.2 cm IVS/LVPW 1.0 FS 34.6 % EDV(Teich) 99.9 ml ESV(Teich) 36.3 ml EF(Teich) 63.7 % EDV(cubed) 100.7 ml ESV(cubed) 28.2 ml EF(cubed) 72.0 % % IVS thick 39.8 % % LVPW thick 46.7 % LV mass(C)d 295.3 grams LV mass(C)dI 129.2 grams/m\S\2 LV mass(C)s 313.8 grams LV mass(C)sI 137.3 grams/m\S\2 SV(Teich) 63.7 ml SI(Teich) 27.8 ml/m\S\2 SV(cubed) 72.5 ml SI(cubed) 31.7 ml/m\S\2 Ao root diam 3.0 cm Ao root area 6.9 cm\S\2 LA dimension 2.7 cm LA/Ao 0.93 LVOT diam 2.2 cm LVOT area 3.7 cm\S\2 Doppler Measurements and Calculations MV E max bryant 73.9 cm/sec MV A max bryant 69.6 cm/sec MV E/A 1.1 MV P1/2t max bryant 111.8 cm/sec MV P1/2t 61.7 msec MVA(P1/2t) 3.6 cm\S\2 MV dec slope 531.1 cm/sec\S\2 MV dec time 0.32 sec Ao V2 max 123.3 cm/sec Ao max PG 6.1 mmHg Ao max PG (full) 1.4 mmHg BASILIA(V,A) 3.2 cm\S\2 BASILIA(V,D) 3.2 cm\S\2 LV V1 max PG 4.7 mmHg LV V1 max 108.7 cm/sec MR max bryant 540.5 cm/sec MR max PG 116.9 mmHg TV E max bryant 57.2 cm/sec TR max bryant 225.0 cm/sec RVSP(TR) 23.3 mmHg RAP systole 3.0 mmHg
--- NOTE | 2016-07-10 13:52 | DIAGNOSTIC IMAGING REPORT ---
Brain MRA HISTORY: Mental status change Stroke. Left facial droop, slurred speech TECHNIQUE: 3-D [id number] MRA of the brain was performed without contrast. COMPARISON STUDY: None. FINDINGS: Visualized intracranial internal carotid arteries, distal vertebral arteries, and basilar artery are widely patent. There is no significant stenosis, occlusion, or aneurysm seen within the bilateral ACAs, MCAs, or wine cellar worker. IMPRESSION: No significant stenosis, occlusion, or aneurysm within the [place]. Electronically signed by: Bg Hannon M.D. 07/10/2016 1:50 PM Dictated Date/Time: 07/10/2016 1:48 PM
--- NOTE | 2016-07-10 13:57 | DIAGNOSTIC IMAGING REPORT ---
NECK MRA HISTORY: Stroke, left facial droop, slurred speech TECHNIQUE: [id number] and gadolinium-enhanced MRA of the neck was performed both before and after the intravenous administration of contrast. All measurements were calculated based on NASCET criteria. COMPARISON STUDY: None. FINDINGS: The aortic arch and proximal great vessels are widely patent. There is no significant stenosis, occlusion, or dissection identified within the bilateral common carotid or internal carotid arteries. The proximal right vertebral artery is not well-visualized due to motion artifact but appears to be mildly narrowed. There is also mild narrowing within the proximal left vertebral artery. The remaining portions of the vertebral arteries are patent. IMPRESSION: No significant stenosis, occlusion, or dissection identified within the bilateral carotid arteries. Mild stenosis within the bilateral proximal vertebral arteries.. Electronically signed by: Boni Gray M.D. 07/10/2016 1:56 PM Dictated Date/Time: 07/10/2016 1:52 PM
--- NOTE | 2016-07-10 14:00 | Critical Care Consultation ---
Critical Care Consultation Date of Consultation: July 10, 2016. Attending Physician: Abran Hong D.O. Reason for Consultation: Post TPA History of Present Illness 45-year-old female with a past medical history of hypertension, hyperlipidemia, status post cholecystectomy presented to the to the ER as a stroke alert after developing slurring of speech, left upper extremity weakness and facial droop at around 1930 last evening. She was hypertensive on arrival and was started on labetalol and nicardipine and also received TPA after head CT was negative for hemorrhage. She has a history of hypertension from late 20s and has been controlling it with 2 blood pressure medications. She was admitted to the ICU, post TPA. She complains of feeling very tired and fatigued and states that her left upper extremity feels like a "sloth " and very heavy. She denies any numbness or tingling, slurring of speech, blurring of vision, headache. Denies any chest pain, palpitations but has dyspnea on exertion Past Medical/Surgical History HTN, HLD, fibroids, Cholecystectomy Family History Unknown Social History Smoking Status: Never Smoker Marital Status: Housing Status: lives with family Occupation Status: employed Allergies Coded Allergies: Penicillins (Verified Allergy, Unknown, RASH, 07/09/16) Procaine (Unverified Allergy, Unknown, RASH, 07/09/16) Home Medications Scheduled [Blood Pressure], 1 TAB PO DAILY [Cholesterol], 1 TAB PO DAILY Current Inpatient Medications Current Inpatient Medications Medications (Trade) Dose Ordered Sig/Douglas Route Start Time Stop Time Status Last Admin Dose Admin Miscellaneous Information (Pharmacist Discharge Med Rec Consult) 1 ea UD PRN N/A 07/09/16 22:30 08/08/16 22:29 Atorvastatin Calcium 80 mg 80 mg QAM PO 07/10/16 09:00 08/09/16 08:59 Sodium Chloride (Nss 1000ml) 1,000 ml @ 50 mls/hr Q20H IV 07/10/16 00:15 08/09/16 00:14 07/10/16 00:15 50 MLS/HR Review of Systems Constitutional: No chills, No fever Eyes: No worsening of vision ENT: No hearing loss Respiratory: + dyspnea on exertion, No cough, No sputum Cardiovascular: No chest pain Abdomen: No nausea, No pain, No vomiting Musculoskeletal: No joint pain Genitourinary - Female: No dysuria, No urinary frequency, No urinary urgency Neurologic: + weakness (of left arm and leg), No balance problems, No numbness/ tingling, No vertigo Psychiatric: No depression symptoms Endocrine: No fatigue Hematologic / Lymphatic: No abnormal bleeding/bruising Integumentary: No rash Physical Exam Date Time Temp Pulse Resp B/P Pulse Ox O2 Delivery O2 Flow Rate FiO2 07/10/16 11:30 36.8 71 22 148/70 97 Room Air 07/10/16 11:00 36.8 70 21 130/85 97 07/10/16 10:30 36.8 70 21 151/98 97 Room Air 07/10/16 10:00 36.8 84 20 130/85 97 07/10/16 09:45 84 20 97 07/10/16 09:31 72 23 130/85 95 07/10/16 09:30 36.8 76 22 130/85 98 Room Air 07/10/16 09:30 75 24 94 07/10/16 09:29 76 15 136/81 95 07/10/16 09:15 75 22 90 07/10/16 09:12 80 12 137/89 91 07/10/16 09:00 98 18 93 07/10/16 08:58 78 24 170/106 94 07/10/16 08:52 72 20 144/93 94 07/10/16 08:45 70 23 94 07/10/16 08:31 84 14 138/90 96 07/10/16 08:30 36.8 96 20 138/90 98 Room Air 07/10/16 08:30 99 15 95 07/10/16 08:15 75 19 93 07/10/16 08:00 98 Room Air 07/10/16 08:00 98 07/10/16 08:00 75 19 137/77 94 07/10/16 07:45 77 16 99 07/10/16 07:31 78 26 117/93 98 07/10/16 07:30 78 42 98 07/10/16 07:30 36.7 75 24 117/93 98 Room Air 07/10/16 07:15 69 18 98 07/10/16 07:00 76 22 112/81 98 07/10/16 06:31 73 21 100/69 98 07/10/16 06:31 73 21 100/69 98 5/16/17 06:30 74 22 97 5/16/17 06:30 74 22 97 5/16/17 06:15 74 21 97 5/16/17 06:15 74 21 97 5/16/17 06:01 77 19 110/70 97 5/16/17 06:01 77 19 110/70 97 5/16/17 06:00 73 20 97 5/16/17 06:00 73 20 97 5/16/17 05:45 75 19 97 5/16/17 05:45 75 19 97 5/16/17 05:45 75 19 97 5/16/17 05:30 76 19 130/76 97 5/16/17 05:30 76 19 130/76 97 5/16/17 05:30 76 19 130/76 97 5/16/17 05:15 80 23 99 5/16/17 05:15 80 23 99 5/16/17 05:15 80 23 99 5/16/17 05:01 77 20 101/66 97 5/16/17 05:01 77 20 101/66 97 5/16/17 05:01 77 20 101/66 97 5/16/17 05:00 77 20 98 5/16/17 05:00 77 20 98 5/16/17 05:00 77 20 98 5/16/17 04:45 75 20 98 5/16/17 04:36 73 22 96/71 5/16/17 04:36 73 22 96/71 5/16/17 04:36 73 22 96/71 5/16/17 04:30 37.0 74 22 Nasal Cannula 2.0 5/16/17 04:30 75 20 98 5/16/17 04:30 75 20 98 5/16/17 04:15 78 19 99 5/16/17 04:15 78 19 99 5/16/17 04:15 78 19 99 5/16/17 04:00 75 20 98 5/16/17 04:00 75 20 98 5/16/17 04:00 98 Nasal Cannula 2.0 5/16/17 04:00 75 20 98 5/16/17 04:00 106 32 94 5/16/17 04:00 37.0 74 32 127/71 98 Nasal Cannula 2.0 5/16/17 04:00 75 20 98 5/16/17 03:45 92 12 98 5/16/17 03:36 97 14 127/71 96 07/10/16 03:31 78 34 94/41 97 07/10/16 03:30 80 35 97 07/10/16 03:15 85 20 97 07/10/16 03:00 85 21 123/58 96 16 02:45 84 23 97 07/10/16 02:31 88 21 108/67 98 07/10/16 02:30 85 21 97 07/10/16 02:15 88 21 98 07/10/16 02:00 107 22 150/85 97 07/10/16 01:45 90 24 95 Nasal Cannula 2.0 07/10/16 01:45 90 24 95 07/10/16 01:31 91 22 147/85 96 Nasal Cannula 2.0 07/10/16 01:31 91 22 147/85 96 07/10/16 01:30 89 23 95 Nasal Cannula 2.0 07/10/16 01:30 89 23 95 07/10/16 01:15 85 20 97 Nasal Cannula 2.0 07/10/16 01:15 85 20 97 07/10/16 01:00 96 24 143/87 93 07/10/16 01:00 96 24 143/87 93 Room Air 07/10/16 00:45 100 24 91 Room Air 07/10/16 00:45 100 24 91 07/10/16 00:30 108 32 165/97 95 07/10/16 00:30 108 32 165/97 95 Room Air 07/10/16 00:15 94 20 94 07/10/16 00:15 94 20 94 Room Air 07/10/16 00:01 102 26 146/79 92 Room Air 07/10/16 00:01 102 26 146/79 92 07/10/16 00:00 36.9 106 32 94 Room Air 07/10/16 00:00 106 32 94 07/10/16 00:00 94 Room Air 07/09/16 23:45 98 24 140/71 92 07/09/16 23:45 98 24 140/71 92 Room Air 07/09/16 23:30 102 24 143/81 93 07/09/16 23:30 102 24 143/81 93 Room Air 07/09/16 23:12 37.0 115 27 144/93 92 Room Air 07/09/16 23:00 37.0 96 27 144/93 92 07/09/16 22:56 96 27 92 07/09/16 22:55 144/93 07/09/16 22:51 106 26 94 07/09/16 22:46 101 21 95 07/09/16 22:45 157/91 07/09/16 22:41 101 28 91 07/09/16 22:40 163/97 07/09/16 22:36 102 31 91 07/09/16 22:35 144/89 07/09/16 22:31 100 30 93 07/09/16 22:26 167/91 07/09/16 22:25 104 29 93 07/09/16 22:20 103 30 182/99 93 07/09/16 22:15 37.0 115 18 151/108 96 Room Air 07/09/16 22:15 108 30 170/93 91 07/09/16 22:10 115 23 175/99 92 07/09/16 22:05 107 22 162/101 93 07/09/16 22:00 112 26 151/108 95 07/09/16 21:55 170/93 07/09/16 21:52 108 33 92 07/09/16 21:50 146/97 07/09/16 21:47 108 45 92 07/09/16 21:45 169/107 07/09/16 21:43 200/109 07/09/16 21:42 126 19 218/137 95 07/09/16 21:39 178/120 07/09/16 21:37 109 30 93 07/09/16 21:35 188/115 07/09/16 21:33 37.0 94 18 207/101 96 Room Air 07/09/16 21:32 107 28 92 07/09/16 21:30 203/114 07/09/16 21:27 99 20 96 07/09/16 21:25 200/117 07/09/16 21:22 98 94 07/09/16 21:19 94 Room Air 07/09/16 21:17 96 95 07/09/16 21:16 199/108 07/09/16 21:12 95 207/119 95 07/09/16 21:07 93 96 07/09/16 21:02 86 96 07/09/16 21:01 216/112 07/09/16 20:57 90 07/09/16 20:57 91 95 07/09/16 20:54 207/101 General Appearance: well-appearing, WD/WN Eyes: PERRLA, EOMI Neck: normal range of motion, no tenderness, trachea midline Respiratory: breath sounds normal, clear to auscultation, clear to percussion, no respiratory distress Cardiovasular: regular rate/rhythm Abdomen: non tender, normal bowel sounds Back: normal inspection Upper Extremities: no edema Lower Extremities: no edema Neuro: alert, oriented x 3, normal sensation, normal memory, other (left sided facial droop, left UE weakness 3/5, LLE 4/5 strength. finger nose left sided slower, dysmetria) Psychiatric: normal affect Laboratory Results Last 24 Hours Test 07/09/16 20:53 07/09/16 21:05 07/09/16 21:14 07/09/16 21:45 Bedside Prothrombin Time INR 1.1 Bedside Glucose 170 mg/dl White Blood Count 9.82 K/uL Red Blood Count 4.19 M/uL Hemoglobin 12.1 g/dL Hematocrit 37.1 % Mean Corpuscular Volume 88.5 fL Mean Corpuscular Hemoglobin 28.9 pg Mean Corpuscular Hemoglobin Concent 32.6 g/dl Platelet Count 426 K/uL Mean Platelet Volume 8.3 fL Neutrophils (%) (Auto) 62.0 % Lymphocytes (%) (Auto) 29.7 % Monocytes (%) (Auto) 6.0 % Eosinophils (%) (Auto) 1.7 % Basophils (%) (Auto) 0.2 % Neutrophils # (Auto) 6.08 K/uL Lymphocytes # (Auto) 2.92 K/uL Monocytes # (Auto) 0.59 K/uL Eosinophils # (Auto) 0.17 K/uL Basophils # (Auto) 0.02 K/uL RDW Standard Deviation 41.2 fL RDW Coefficient of Variation 12.8 % Immature Granulocyte % (Auto) 0.4 % Immature Granulocyte # (Auto) 0.04 K/uL Prothrombin Time 10.7 SECONDS Prothromb Time International Ratio 1.0 Activated Partial Thromboplast Time 28.4 SECONDS Partial Thromboplastin Ratio 1.1 Sodium Level 141 mmol/L Potassium Level 4.3 mmol/L Chloride Level 105 mmol/L Carbon Dioxide Level 28 mmol/L Anion Gap 8.0 mmol/L 20.0 mmol/L Blood Urea Nitrogen 15 mg/dl Creatinine 1.20 mg/dl Est Creatinine Clear Calc Drug Dose 78.9 ml/min Estimated GFR () 62.8 Estimated GFR (Non- 54.2 BUN/Creatinine Ratio 12.3 Random Glucose 174 mg/dl Calcium Level 9.6 mg/dl Total Creatine Kinase 247 U/L Creatine Kinase MB 1.9 ng/ml Creatine Kinase MB Ratio 0.8 Troponin I < 0.015 ng/ml Bedside Hemoglobin 12.2 g/dl Bedside Hematocrit 36 % Bedside Sodium 141 mEq/L Bedside Potassium 4.3 mEq/L Bedside Chloride 101 mEq/L Bedside Total CO2 24 mEq/l Bedside Blood Urea Nitrogen 14 mg/dl Bedside Creatinine 1.1 mg/dl Bedside Glucose (other) 177 mg/dl Bedside Ionized Calcium (Alberto) 1.17 mmol/l Urine Color YELLOW Urine Appearance CLOUDY Urine pH 6.5 Urine Specific [place] 1.016 Urine Protein NEG Urine Glucose (UA) NEG Urine Ketones NEG Urine Occult Blood 3+ Urine Nitrite NEG Urine Bilirubin NEG Urine Urobilinogen NEG Urine Leukocyte Esterase MODERATE Urine WBC (Auto) 10-30 /hpf Urine RBC (Auto) 5-10 /hpf Urine Hyaline Casts (Auto) 1-5 /lpf Urine Epithelial Cells (Auto) >30 /lpf Urine Bacteria (Auto) NEG Urine Opiates Screen NEG Urine Methadone, Qualitative NEG Urine Barbiturates NEG Urine Phencyclidine (PCP) Level NEG Ur Amphetamine/Methamphetamine NEG MDMA (Ecstasy) Screen NEG Urine Benzodiazepines Screen NEG Urine Cocaine Metabolite NEG Urine Marijuana (THC) NEG Test 07/10/16 06:10 07/10/16 12:46 White Blood Count 9.93 K/uL Red Blood Count 4.08 M/uL Hemoglobin 11.9 g/dL Hematocrit 36.7 % Mean Corpuscular Volume 90.0 fL Mean Corpuscular Hemoglobin 29.2 pg Mean Corpuscular Hemoglobin Concent 32.4 g/dl Platelet Count 426 K/uL Mean Platelet Volume 8.4 fL Neutrophils (%) (Auto) 64.0 % Lymphocytes (%) (Auto) 29.5 % Monocytes (%) (Auto) 4.3 % Eosinophils (%) (Auto) 1.6 % Basophils (%) (Auto) 0.3 % Neutrophils # (Auto) 6.35 K/uL Lymphocytes # (Auto) 2.93 K/uL Monocytes # (Auto) 0.43 K/uL Eosinophils # (Auto) 0.16 K/uL Basophils # (Auto) 0.03 K/uL RDW Standard Deviation 42.0 fL RDW Coefficient of Variation 12.9 % Immature Granulocyte % (Auto) 0.3 % Immature Granulocyte # (Auto) 0.03 K/uL Prothrombin Time 10.6 SECONDS Prothromb Time International Ratio 1.0 Sodium Level 140 mmol/L Potassium Level 4.3 mmol/L Chloride Level 106 mmol/L Carbon Dioxide Level 28 mmol/L Anion Gap 6.0 mmol/L Blood Urea Nitrogen 18 mg/dl Creatinine 1.10 mg/dl Est Creatinine Clear Calc Drug Dose 83.0 ml/min Estimated GFR () 69.7 Estimated GFR (Non- 60.2 BUN/Creatinine Ratio 16.6 Random Glucose 130 mg/dl Estimated Average Glucose 137 mg/dl Hemoglobin A1c 6.4 % Calcium Level 9.1 mg/dl Total Bilirubin 0.3 mg/dl Aspartate Amino Transf (AST/SGOT) 11 U/L Alanine Aminotransferase (ALT/SGPT) 21 U/L Alkaline Phosphatase 72 U/L Troponin I < 0.015 ng/ml Total Protein 7.5 gm/dl Albumin 3.4 gm/dl Globulin 4.1 gm/dl Albumin/Globulin Ratio 0.8 Triglycerides Level 129 mg/dl Cholesterol Level 228 mg/dl HDL Cholesterol 62 mg/dl LDL Cholesterol, Calculated 140 mg/dl VLDL Cholesterol, Calculated 26 mg/dl Cholesterol/HDL Ratio 3.[address] SCAN OF THE BRAIN WITHOUT IV CONTRAST CLINICAL HISTORY: Strokelike symptoms. COMPARISON STUDY: No priors. TECHNIQUE: Unenhanced axial CT scan of the brain is performed from the vertex to the skull base. Automated dose control exposure was utilized. CT DOSE: 1333.16 mGy.cm FINDINGS: Brain parenchyma: The brain parenchyma is normal in appearance. There is no hemorrhage, mass effect, or evidence of acute territorial ischemia by CT criteria. Joe-white matter is preserved. No extra-axial fluid collection is seen. Ventricles, sulci, cisterns: Normal in configuration. Intracranial vasculature: The visualized intracranial vasculature at the skull base is normal in appearance. Calvarium: Unremarkable. Sinuses and mastoids: The visualized paranasal sinuses are clear. The mastoid air cells are well pneumatized. Orbits: The bony orbits are grossly intact. IMPRESSION: There is no hemorrhage, mass effect, or evidence of acute territorial ischemia by CT criteria. Assessment & Plan 45 year old with uncontrolled hypertension and hyperlipidemia presents to the ER left sided facial droop and slurred speech s/p stroke call with administration of tPA at 3 hours 20 minutes post symptoms (21:52 5/15/1Ne Neuro: CVA status post TPA: - Head CT:There is no hemorrhage, mass effect, or evidence of acute territorial ischemia by CT criteria - MRI brain combo, MRA head, MRA neck pending - Stroke /post TPA protocol - Echo pending - Speech/PT/OT consult- appreciate recs - maintain BP between 140-160 Systolic - start aspirin in 24 hours post TPA - Continue statin - work up for hypercoagulable state - appreciate neuro recs CVS: Uncontrolled HTN: - was on nicardipine drip-maintain NBP between 140-160 for perfusion - labetalol 15 mg PRN 15 min if SBP>180 , DBP>105 - Hold home meds - will need further eval- renal US ordered for CASA - Hyperlipidemia: - Continue atorvastatin Resp: PIEDAD: - maintaining saturations>96 on RA - will need further workup as an OP- stress echo etc Concern of PRITI- was to have a sleep study as an OP - nocturnal pulse oximetry GI/FEN: - speech eval - AHA diet Heme: s/p TPA - monitor for any bleeding, CT after 24 hours hypercoagulable workup for stroke DVT prophylaxis - SCDS Full code Disposition - Monitor in ICU Resident Physician Supervision Note: I interviewed and examined the patient. Discussed with Dr. Ross and agree with findings and plan as documented in the note. Any exceptions or clarifications can be found in my dictated addendum. Documented By: Selina Callejas Resident Tracking Resident Involvement: Resident Care Provided Care Provided: Adult Hospital Medicine
--- NOTE | 2016-07-10 14:43 | DIAGNOSTIC IMAGING REPORT ---
DUPLEX RENAL ARTERY ultrasound CLINICAL HISTORY: Uncontrolled hypertension. COMPARISON STUDY: Abdomen and pelvis CT 06/02/2012. FINDINGS: The right kidney measures 9.5 cm and the left kidney measures 10.3 cm. No hydronephrosis. Bilateral renal veins are patent. Resistive indices within the bilateral renal arcuate arteries are less than 0.72. Peak systolic velocity within the right renal artery was 80 cm/s in the left renal artery was 63 cm/s. IMPRESSION: No evidence for renal artery stenosis Electronically signed by: Boni Gray M.D. 07/10/2016 2:42 PM Dictated Date/Time: 07/10/2016 2:39 PM
[2016-07-10] MEDS ORDERED: LABETALOL HCL IV 5 MG/ML 20ML IV PRN ×2 (14:45)
[2016-07-10] MEDS ORDERED: AMLODIPINE BESYLATE 5 MG TAB PO ONE (14:45)
[2016-07-10] MEDS ORDERED: LISINOPRIL 5 MG TAB PO ONE (14:45)
[2016-07-10] MEDS ORDERED: LABETALOL HCL IV 5 MG/ML 20ML IV ONE (14:46)
[2016-07-10] MEDS ORDERED: NiCARDipine IV 25 MG in SODIUM CHLORIDE 0.9% 250ML 240 ML IV PRN (14:50)
[2016-07-10] MEDS ORDERED: VALSARTAN/HCTZ 80/12.5 MG TAB PO SCH (15:00)
[2016-07-10] MEDS ORDERED: VALSARTAN 80 MG TAB PO ONE (15:30)
[2016-07-10] MEDS ORDERED: HYDROCHLOROTHIAZIDE 25 MG TAB PO ONE (15:30)
--- NOTE | 2016-07-10 15:40 | CRITICAL CARE CONSULTATION ---
DATE OF CONSULTATION: 07/10/2016 Please accept this as an addendum to the critical care consultation done earlier by Dr. Ross. The patient's care was discussed in detail on multidisciplinary rounds today. I have also reviewed the consultation done by Dr. Ross and agree with her impression and plan. I have personally interviewed and examined the patient and my exam confirms what is documented by Dr. Ross. HISTORY OF PRESENT ILLNESS: This is a patient who presented with slurred speech and left-sided weakness. She received TPA in the Emergency Department and was on nicardipine last night. Her blood pressure dropped into the 100 systolically and it appears that occurred rather abruptly. The nicardipine infusion was stopped and she has not received any antihypertensives since that time. Her goal blood pressure is 140-160 mmHg systolically. She feels like she is about the same as she was yesterday prior to the TPA as far as her strength goes and continues to describe the use of her left upper extremity as "like a slough." Today, she has undergone an echocardiogram, which showed normal left ventricular size and systolic function, ejection fraction 60%-65%, no regional wall motion abnormalities. Moderate concentric left ventricular hypertrophy and type 2 diastolic dysfunction. No visualized ASD or PFO. No right to left interatrial shunt seen. She also had an MRI of the brain as well as MRA of the head and neck. This revealed acute/subacute infarct of the posterior limb of the right internal capsule. No significant stenosis, occlusion, or dissection within the bilateral carotid arteries and no significant stenosis, occlusion or aneurysm within the [place]. She has not had any arrhythmias since her arrival to the intensive care unit. She has been seen by the neurology service for her acute cerebrovascular accident. We found that today, she is taking valsartan/hydrochlorothiazide 160 mg/50 mg. She is being started back on her medication, but at a lower dose. Her blood pressure has been well controlled until this afternoon and she is receiving labetalol. She may require continuous infusion of nicardipine while her enteral medications are being adjusted. I discussed her care in detail with both she and her at the bedside. She has been ordered physical therapy, occupational therapy and speech therapy. Hopefully, her strength and coordination will improve. We will need to investigate whether or not her hypercoagulable panel was drawn prior to her TPA. Keep in the intensive care unit tonight to adjust blood pressure medications.
[2016-07-10] MEDS: ATORVASTATIN 40 MG TAB PO SCH (15:44)
--- NOTE | 2016-07-10 16:14 | Family Medicine Progress Note ---
Progress Note Date of Service July 10, 2016. Subjective Pt evaluation today including: conversation w/ patient, conversation w/ family , physical exam, chart review, lab review, review of studies Pain: 0/10 PO Intake: WNL Voiding: no voiding problems Patient has some residual symptoms and has ongoing complaints of left sided UE weakness. It was found out that her normal bp medication is valsartan - hctz 160/50 She has been being treated for htn since her 20s and states that she did not take her medications the day of her infarct but normally is rather compliant did get tearful after the interview and case discussed in detail with patient and family Constitutional: No fever Eyes: No worsening of vision Respiratory: No cough, No dyspnea on exertion, No shortness of breath, No sputum, No wheezing Cardiovascular: No chest pain Abdomen: No constipation, No diarrhea, No nausea, No pain, No vomiting Musculoskeletal: No joint pain, No muscle pain Female : No dysuria Neurologic: + balance problems, + weakness (left UE and a luittle in left lower extremity) Psychiatric: No depression symptoms Endo: No fatigue Skin: No rash Medications Medications Administered Medications (Trade) Dose Ordered Sig/Douglas Route Start Time Stop Time Status Last Admin Dose Admin Nicardipine HCl 25 mg/Sodium Chloride 250 ml @ 0 mls/hr Q0M PRN IV 07/09/16 21:00 07/09/16 23:23 DC 07/09/16 21:15 5 MLS/HR Alteplase, Recombinant 81 mg/ Empty Bag 81 ml @ 81 mls/hr TODAY@2114 IV 07/09/16 21:15 07/09/16 22:14 DC 07/09/16 21:54 81 MLS/HR Alteplase, Recombinant/ Syringe (Activase Inj/ Syringe) 18 ml @ 9 mls/min TODAY@2115 IV 07/09/16 21:15 07/09/16 21:16 DC 07/09/16 21:54 9 MLS/MIN Atorvastatin Calcium 80 mg 80 mg QAM PO 07/10/16 09:00 08/09/16 08:59 07/10/16 15:44 80 MG Nicardipine HCl 25 mg/Sodium Chloride 250 ml @ 0 mls/hr Q0M PRN IV 07/09/16 23:10 07/10/16 08:11 DC 07/10/16 01:21 50 MLS/HR Sodium Chloride 1,000 ml @ 50 mls/hr Q20H IV 07/10/16 00:15 08/09/16 00:14 07/10/16 00:15 50 MLS/HR Insulin Human Regular/Syringe (novoLIN-R/ Syringe) 2 ml @ 1 mls/min TODAY@0015 IV 07/10/16 00:15 07/10/16 00:16 DC 07/10/16 00:55 1 MLS/MIN Labetalol HCl (Normodyne IV) 5 mg STK-MED ONCE IV 07/10/16 14:46 07/10/16 14:47 DC 07/10/16 14:53 5 MG Valsartan (Diovan Tab) 80 mg 1530 ONCE PO 07/10/16 15:30 07/10/16 15:31 DC 07/10/16 15:44 80 MG Hydrochlorothiazide (Hydrochlorothiazide Tab) 12.5 mg 1530 ONCE PO 07/10/16 15:30 07/10/16 15:31 DC 07/10/16 15:45 12.5 MG Objective Vital Signs Date Time Temp Pulse Resp B/P Pulse Ox O2 Delivery O2 Flow Rate FiO2 07/10/16 16:00 98 Room Air 07/10/16 15:32 73 07/10/16 14:30 37.0 67 18 189/126 95 Room Air 07/10/16 13:30 97 Room Air 07/10/16 13:30 37.0 79 20 189/111 95 Room Air 07/10/16 11:30 36.8 71 22 148/70 97 Room Air 07/10/16 11:00 36.8 70 21 130/85 97 07/10/16 10:30 36.8 70 21 151/98 97 Room Air 07/10/16 10:00 36.8 84 20 130/85 97 07/10/16 09:45 84 20 97 07/10/16 09:31 72 23 130/85 95 07/10/16 09:30 36.8 76 22 130/85 98 Room Air 07/10/16 09:30 75 24 94 07/10/16 09:29 76 15 136/81 95 07/10/16 09:15 75 22 90 07/10/16 09:12 80 12 137/89 91 5/16/17 09:00 98 18 93 5/16/17 08:58 78 24 170/106 94 5/16/17 08:52 72 20 144/93 94 5/16/17 08:45 70 23 94 5/16/17 08:31 84 14 138/90 96 5/16/17 08:30 36.8 96 20 138/90 98 Room Air 5/16/17 08:30 99 15 95 5/16/17 08:15 75 19 93 5/16/17 08:00 98 Room Air 5/16/17 08:00 98 5/16/17 08:00 75 19 137/77 94 5/16/17 07:45 77 16 99 5/16/17 07:31 78 26 117/93 98 5/16/17 07:30 78 42 98 5/16/17 07:30 36.7 75 24 117/93 98 Room Air 5/16/17 07:15 69 18 98 5/16/17 07:00 76 22 112/81 98 5/16/17 06:31 73 21 100/69 98 5/16/17 06:31 73 21 100/69 98 5/16/17 06:30 74 22 97 5/16/17 06:30 74 22 97 5/16/17 06:15 74 21 97 5/16/17 06:15 74 21 97 5/16/17 06:01 77 19 110/70 97 5/16/17 06:01 77 19 110/70 97 5/16/17 06:00 73 20 97 5/16/17 06:00 73 20 97 5/16/17 05:45 75 19 97 5/16/17 05:45 75 19 97 5/16/17 05:45 75 19 97 5/16/17 05:30 76 19 130/76 97 5/16/17 05:30 76 19 130/76 97 5/16/17 05:30 76 19 130/76 97 5/16/17 05:15 80 23 99 5/16/17 05:15 80 23 99 5/16/17 05:15 80 23 99 5/16/17 05:01 77 20 101/66 97 5/16/17 05:01 77 20 101/66 97 5/16/17 05:01 77 20 101/66 97 5/16/17 05:00 77 20 98 5/16/17 05:00 77 20 98 5/16/17 05:00 77 20 98 5/16/17 04:45 75 20 98 /16/17 04:36 73 22 96/71 516/17 04:36 73 22 96/71 5/16/17 04:36 73 22 96/71 516/17 04:30 37.0 74 22 Nasal Cannula 2.0 16/17 04:30 75 20 98 516/17 04:30 75 20 98 5/16/17 04:15 78 19 99 5/16/17 04:15 78 19 99 5/16/17 04:15 78 19 99 516/17 04:00 75 20 98 516/17 04:00 75 20 98 16/17 04:00 98 Nasal Cannula 2.0 16/17 04:00 75 20 98 16/17 04:00 106 32 94 16/17 04:00 37.0 74 32 127/71 98 Nasal Cannula 2.0 16/17 04:00 75 20 98 516/17 03:45 92 12 98 516/17 03:36 97 14 127/71 96 5/16/17 03:31 78 34 94/41 97 516/17 03:30 80 35 97 516/17 03:15 85 20 97 5/16/17 03:00 85 21 123/58 96 5/16/17 02:45 84 23 97 5/16/17 02:31 88 21 108/67 98 5/16/17 02:30 85 21 97 5/16/17 02:15 88 21 98 516/17 02:00 107 22 150/85 97 5/16/17 01:45 90 24 95 Nasal Cannula 2.0 516/17 01:45 90 24 95 5/16/17 01:31 91 22 147/85 96 Nasal Cannula 2.0 516/17 01:31 91 22 147/85 96 5/16/17 01:30 89 23 95 Nasal Cannula 2.0 5/16/17 01:30 89 23 95 5/16/17 01:15 85 20 97 Nasal Cannula 2.0 5/16/17 01:15 85 20 97 5/16/17 01:00 96 24 143/87 93 5/16/17 01:00 96 24 143/87 93 Room Air 07/10/16 00:45 100 24 91 Room Air 07/10/16 00:45 100 24 91 07/10/16 00:30 108 32 165/97 95 07/10/16 00:30 108 32 165/97 95 Room Air 07/10/16 00:15 94 20 94 07/10/16 00:15 94 20 94 Room Air 07/10/16 00:01 102 26 146/79 92 Room Air 07/10/16 00:01 102 26 146/79 92 07/10/16 00:00 36.9 106 32 94 Room Air 07/10/16 00:00 106 32 94 07/10/16 00:00 94 Room Air 07/09/16 23:45 98 24 140/71 92 07/09/16 23:45 98 24 140/71 92 Room Air 07/09/16 23:30 102 24 143/81 93 07/09/16 23:30 102 24 143/81 93 Room Air 07/09/16 23:12 37.0 115 27 144/93 92 Room Air 07/09/16 23:00 37.0 96 27 144/93 92 07/09/16 22:56 96 27 92 07/09/16 22:55 144/93 07/09/16 22:51 106 26 94 07/09/16 22:46 101 21 95 07/09/16 22:45 157/91 07/09/16 22:41 101 28 91 07/09/16 22:40 163/97 07/09/16 22:36 102 31 91 07/09/16 22:35 144/89 07/09/16 22:31 100 30 93 07/09/16 22:26 167/91 07/09/16 22:25 104 29 93 07/09/16 22:20 103 30 182/99 93 07/09/16 22:15 37.0 115 18 151/108 96 Room Air 07/09/16 22:15 108 30 170/93 91 07/09/16 22:10 115 23 175/99 92 07/09/16 22:05 107 22 162/101 93 07/09/16 22:00 112 26 151/108 95 07/09/16 21:55 170/93 07/09/16 21:52 108 33 92 07/09/16 21:50 146/97 07/09/16 21:47 108 45 92 07/09/16 21:45 169/107 07/09/16 21:43 200/109 07/09/16 21:42 126 19 218/137 95 07/09/16 21:39 178/120 07/09/16 21:37 109 30 93 07/09/16 21:35 188/115 07/09/16 21:33 37.0 94 18 207/101 96 Room Air 07/09/16 21:32 107 28 92 07/09/16 21:30 203/114 07/09/16 21:27 99 20 96 07/09/16 21:25 200/117 07/09/16 21:22 98 94 07/09/16 21:19 94 Room Air 07/09/16 21:17 96 95 07/09/16 21:16 199/108 07/09/16 21:12 95 207/119 95 07/09/16 21:07 93 96 07/09/16 21:02 86 96 07/09/16 21:01 216/112 07/09/16 20:57 90 07/09/16 20:57 91 95 07/09/16 20:54 207/101 Physical Exam General Appearance: no apparent distress, + obese Eyes: normal inspection ENT: normal ENT inspection, + pertinent finding (left facial drooping, no uvular deviation) Neck: supple Respiratory/Chest: normal breath sounds, no respiratory distress, no accessory muscle use Cardiovascular: regular rate, rhythm, no murmur Abdomen: normal bowel sounds, non tender, soft Extremities: non-tender, normal inspection, no pedal edema, no calf tenderness , + pertinent finding (3/5 left UE strength, 5/5 in right UE, left LE 4/5 strength and 5/5 in right le , sensation intact bilat) Neurologic/Psychiatric: alert, normal mood/affect, oriented x 3, + pertinent finding (no aphasia , no dysdiadokinesia) Skin: normal color, warm/dry, no rash Lymphatic: no adenopathy Laboratory Results Results Past 24 Hours Test 07/09/16 20:53 07/09/16 21:05 07/09/16 21:14 07/09/16 21:45 Range/Units Bedside Prothrombin Time INR 1.1 0.9-1.1 Bedside Glucose 170 70-90 mg/dl White Blood Count 9.82 4.8-10.8 K/uL Red Blood Count 4.19 4.2-5.4 M/uL Hemoglobin 12.1 12.0-16.0 g/dL Hematocrit 37.1 37-47 % Mean Corpuscular Volume 88.5 80-100 fL Mean Corpuscular Hemoglobin 28.9 25-34 pg Mean Corpuscular Hemoglobin Concent 32.6 32-36 g/dl Platelet Count 426 130-400 K/uL Mean Platelet Volume 8.3 7.4-10.4 fL Neutrophils (%) (Auto) 62.0 % Lymphocytes (%) (Auto) 29.7 % Monocytes (%) (Auto) 6.0 % Eosinophils (%) (Auto) 1.7 % Basophils (%) (Auto) 0.2 % Neutrophils # (Auto) 6.08 1.4-6.5 K/uL Lymphocytes # (Auto) 2.92 1.2-3.4 K/uL Monocytes # (Auto) 0.59 0.11-0.59 K/uL Eosinophils # (Auto) 0.17 0-0.5 K/uL Basophils # (Auto) 0.02 0-0.2 K/uL RDW Standard Deviation 41.2 36.4-46.3 fL RDW Coefficient of Variation 12.8 11.5-14.5 % Immature Granulocyte % (Auto) 0.4 % Immature Granulocyte # (Auto) 0.04 0.00-0.02 K/uL Prothrombin Time 10.7 9.0-12.0 SECONDS Prothromb Time International Ratio 1.0 0.9-1.1 Activated Partial Thromboplast Time 28.4 21.0-31.0 SECONDS Partial Thromboplastin Ratio 1.1 Sodium Level 141 136-145 mmol/L Potassium Level 4.3 3.5-5.1 mmol/L Chloride Level 105 98-107 mmol/L Carbon Dioxide Level 28 21-32 mmol/L Anion Gap 8.0 20.0 16-25 mmol/L Blood Urea Nitrogen 15 7-18 mg/dl Creatinine 1.20 0.60-1.20 mg/dl Est Creatinine Clear Calc Drug Dose 78.9 ml/min Estimated GFR () 62.8 Estimated GFR (Non- 54.2 BUN/Creatinine Ratio 12.3 10-20 Random Glucose 174 70-99 mg/dl Calcium Level 9.6 8.5-10.1 mg/dl Total Creatine Kinase 247 26-192 U/L Creatine Kinase MB 1.9 0.5-3.6 ng/ml Creatine Kinase MB Ratio 0.8 0-3.0 Troponin I < 0.015 0-0.045 ng/ml Bedside Hemoglobin 12.2 12.0-16.0 g/dl Bedside Hematocrit 36 37-47 % Bedside Sodium 141 135-144 mEq/L Bedside Potassium 4.3 3.3-5.0 mEq/L Bedside Chloride 101 101-112 mEq/L Bedside Total CO2 24 24-31 mEq/l Bedside Blood Urea Nitrogen 14 7-18 mg/dl Bedside Creatinine 1.1 0.6-1.3 mg/dl Bedside Glucose (other) 177 70-99 mg/dl Bedside Ionized Calcium (Alberto) 1.17 1.12-1.32 mmol/l Urine Color YELLOW Urine Appearance CLOUDY CLEAR Urine pH 6.5 4.5-7.5 Urine Specific [place] 1.016 1.000-1.030 Urine Protein NEG NEG Urine Glucose (UA) NEG NEG Urine Ketones NEG NEG Urine Occult Blood 3+ NEG Urine Nitrite NEG NEG Urine Bilirubin NEG NEG Urine Urobilinogen NEG NEG Urine Leukocyte Esterase MODERATE NEG Urine WBC (Auto) 10-30 0-5 /hpf Urine RBC (Auto) 5-10 0-4 /hpf Urine Hyaline Casts (Auto) 1-5 0-5 /lpf Urine Epithelial Cells (Auto) >30 0-5 /lpf Urine Bacteria (Auto) NEG NEG Urine Opiates Screen NEG NEG Urine Methadone, Qualitative NEG NEG Urine Barbiturates NEG NEG Urine Phencyclidine (PCP) Level NEG NEG Ur Amphetamine/Methamphetamine NEG NEG MDMA (Ecstasy) Screen NEG NEG Urine Benzodiazepines Screen NEG NEG Urine Cocaine Metabolite NEG NEG Urine Marijuana (THC) NEG NEG Test 07/10/16 06:10 07/10/16 12:46 Range/Units White Blood Count 9.93 4.8-10.8 K/uL Red Blood Count 4.08 4.2-5.4 M/uL Hemoglobin 11.9 12.0-16.0 g/dL Hematocrit 36.7 37-47 % Mean Corpuscular Volume 90.0 80-100 fL Mean Corpuscular Hemoglobin 29.2 25-34 pg Mean Corpuscular Hemoglobin Concent 32.4 32-36 g/dl Platelet Count 426 130-400 K/uL Mean Platelet Volume 8.4 7.4-10.4 fL Neutrophils (%) (Auto) 64.0 % Lymphocytes (%) (Auto) 29.5 % Monocytes (%) (Auto) 4.3 % Eosinophils (%) (Auto) 1.6 % Basophils (%) (Auto) 0.3 % Neutrophils # (Auto) 6.35 1.4-6.5 K/uL Lymphocytes # (Auto) 2.93 1.2-3.4 K/uL Monocytes # (Auto) 0.43 0.11-0.59 K/uL Eosinophils # (Auto) 0.16 0-0.5 K/uL Basophils # (Auto) 0.03 0-0.2 K/uL RDW Standard Deviation 42.0 36.4-46.3 fL RDW Coefficient of Variation 12.9 11.5-14.5 % Immature Granulocyte % (Auto) 0.3 % Immature Granulocyte # (Auto) 0.03 0.00-0.02 K/uL Prothrombin Time 10.6 9.0-12.0 SECONDS Prothromb Time International Ratio 1.0 0.9-1.1 Sodium Level 140 136-145 mmol/L Potassium Level 4.3 3.5-5.1 mmol/L Chloride Level 106 98-107 mmol/L Carbon Dioxide Level 28 21-32 mmol/L Anion Gap 6.0 3-11 mmol/L Blood Urea Nitrogen 18 7-18 mg/dl Creatinine 1.10 0.60-1.20 mg/dl Est Creatinine Clear Calc Drug Dose 83.0 ml/min Estimated GFR () 69.7 Estimated GFR (Non- 60.2 BUN/Creatinine Ratio 16.6 10-20 Random Glucose 130 70-99 mg/dl Estimated Average Glucose 137 mg/dl Hemoglobin A1c 6.4 4.5-5.6 % Calcium Level 9.1 8.5-10.1 mg/dl Total Bilirubin 0.3 0.2-1 mg/dl Aspartate Amino Transf (AST/SGOT) 11 15-37 U/L Alanine Aminotransferase (ALT/SGPT) 21 12-78 U/L Alkaline Phosphatase 72 45-117 U/L Troponin I < 0.015 0-0.045 ng/ml Total Protein 7.5 6.4-8.2 gm/dl Albumin 3.4 3.4-5.0 gm/dl Globulin 4.1 2.5-4.0 gm/dl Albumin/Globulin Ratio 0.8 0.9-2 Triglycerides Level 129 0-150 mg/dl Cholesterol Level 228 0-200 mg/dl HDL Cholesterol 62 mg/dl LDL Cholesterol, Calculated 140 mg/dl VLDL Cholesterol, Calculated 26 mg/dl Cholesterol/HDL Ratio 3.7 Microbiology Results 07/09/16 MRSA DNA Surveillance Screen - Final, Complete Specimen Negative for MRSA by DNA Probe 07/09/16 Urine Culture - Final, Complete MORE THAN THREE TYPES OF ORGANISMS CT... Assessment and Plan 45 year old with uncontrolled hypertension and hyperlipidemia presents to the ER left sided facial droop and slurred speech s/p stroke call with administration of tPA at 3 hours 20 minutes post symptoms (21:52 07/09/16). Patient had some improvement in her symptoms after administration however her symptoms did persist. 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 Her MRA was unremarkable except for mild proximal bilat vertebral artery stenosis. She was admitted with a systolic blood pressure of > 200. She was placed on a nicardipine drip while in the ICU. 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 - mild proximal bilat vertebral artery stenosis - CT head at 24 hours post - Stroke protocol for neuro checks s/p tPA protocol - Echo - LV nm - LVH concentric moderate - EF 60-65% - no regional wall motion abnormalities - valves WNL - RV systolic pressure 23 mmHg - Speech consult completed - aim glucose <150 - keep sBP <180 dBP <105 post tPA treatment - Consult neurology- appreciate input Hypertension - aim BP <180 and dBP <105 as above - Nicardipine drip has been d/c but available prn - Home medication restarted however at half normal dose, labetalol prn available - Renal USG - no renal artery stenosis Hyperlipidemia - atorvastatin 80mg PO daily HBA1C 6.4%, Pre diabetic - Would benefit from adult educator - will continue to encourage healthy lifestyle choice VTE Prophylaxis - SCDs for first [address] head Code - Full Disposition - ICU until bp under control Resident Physician Supervision Note: I interviewed and examined the patient. Discussed with Dr. Mendez and agree with findings and plan as documented in the note. Any exceptions or clarifications are listed here: None Documented By: Abran Pattonur feeling a little better - facial droop and arm weakness still significant but probably slightly improved per her -- per review of team who saw her this AM as well seems to be significantly improved. discussed CVA, med management, lifestyle change ros otherwise negative except for as above vitals noted nad breathing unlabored L facial droop and L arm weakness CVA - gilbertoley HTN / lipids related - s/p tPA. supportive care, serial exams. permissive HTN, statin. later anticipate starting antiplatelet. discussed lifestyle change Continued [facility] stay due to: other Discharge planning: uncertain, other
--- NOTE | 2016-07-10 17:26 | Medical Student: [facility] ---
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 Her blood pressure was also in the 210s/110s on arrival. She was evaluated via telestroke consult and found to be a tPA candidate. Once her systolic BP was below 185, she was given tPA. She was started on a nicardipine drip, which was stopped around 0400 this morning when her blood pressure dropped to 90s/50s. Since then, her medications were stopped, and her pressured are holding in the 160s/90s. This morning she continued to have slightly gargled speech, complained of persistent L facial droop, and called her LUE the "sloth" because of how slowly her movements with that extremity are. She denies headache, diplopia, decreased sensation, dizziness, shortness of breath, chest pain, n/v or other symptoms. She has a known history of hypertension dating back to her late 20s, but only took her antihypertensive medication consistently for the last 3-4 years. She currently takes Valsartan-HCTZ 160-25, and she did not take her medication yesterday. She also takes 10mg atorvastatin for hyperlipidemia. She has no other known medical conditions. She has no previous stroke or OR, although she has been lightheaded at times which she attributes to high blood pressure. She notes she is due for an PRITI workup as a secondary cause of HTN. No other workup has been done. 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 Past Medical/Surgical History Medical Problems: (1) Acute CVA (cerebrovascular accident) Status: Acute 2. Hypertension: Status: Chronic, poorly controlled. 3. Hyperlipidemia: Status: Chronic 4. 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) Allergies Coded Allergies: Penicillins (Verified Allergy, Unknown, RASH, 07/09/16) Procaine (Unverified Allergy, Unknown, RASH, 07/09/16) Medications [Blood Pressure], 1 TAB PO DAILY [Cholesterol], 1 TAB PO DAILY Review of Systems Constitutional: + fatigue, + weakness Eyes: No problem reported ENT: No problem reported Respiratory: No problem reported Cardiovascular: No problem reported Abdomen: No problem reported Musculoskeletal: No problem reported Neurologic: + problem reported (L facial droop), + weakness (LUE is "sloth arm "), No memory loss, No numbness/tingling, No paralysis, No vertigo Psychiatric: No problem reported Physical Exam Vital Signs (24 Hours) Date Time Temp Pulse Resp B/P Pulse Ox O2 Delivery O2 Flow Rate FiO2 07/10/16 16:00 98 Room Air 07/10/16 15:32 73 07/10/16 15:30 37.0 78 20 182/88 94 Room Air 07/10/16 14:30 37.0 67 18 189/126 95 Room Air 07/10/16 13:30 97 Room Air 07/10/16 13:30 37.0 79 20 189/111 95 Room Air 07/10/16 11:30 36.8 71 22 148/70 97 Room Air 07/10/16 11:00 36.8 70 21 130/85 97 07/10/16 10:30 36.8 70 21 151/98 97 Room Air 07/10/16 10:00 36.8 84 20 130/85 97 07/10/16 09:45 84 20 97 07/10/16 09:31 72 23 130/85 95 07/10/16 09:30 36.8 76 22 130/85 98 Room Air 07/10/16 09:30 75 24 94 07/10/16 09:29 76 15 136/81 95 07/10/16 09:15 75 22 90 07/10/16 09:12 80 12 137/89 91 07/10/16 09:00 98 18 93 07/10/16 08:58 78 24 170/106 94 07/10/16 08:52 72 20 144/93 94 07/10/16 08:45 70 23 94 07/10/16 08:31 84 14 138/90 96 07/10/16 08:30 36.8 96 20 138/90 98 Room Air 07/10/16 08:30 99 15 95 5/16/17 08:15 75 19 93 5/16/17 08:00 98 Room Air 5/16/17 08:00 98 5/16/17 08:00 75 19 137/77 94 5/16/17 07:45 77 16 99 5/16/17 07:31 78 26 117/93 98 5/16/17 07:30 78 42 98 516/17 07:30 36.7 75 24 117/93 98 Room Air 516/17 07:15 69 18 98 516/17 07:00 76 22 112/81 98 5/16/17 06:31 73 21 100/69 98 5/16/17 06:31 73 21 100/69 98 5/16/17 06:30 74 22 97 5/16/17 06:30 74 22 97 516/17 06:15 74 21 97 5/16/17 06:15 74 21 97 5/16/17 06:01 77 19 110/70 97 516/17 06:01 77 19 110/70 97 5/16/17 06:00 73 20 97 5/16/17 06:00 73 20 97 5/16/17 05:45 75 19 97 5/16/17 05:45 75 19 97 5/16/17 05:45 75 19 97 5/16/17 05:30 76 19 130/76 97 5/16/17 05:30 76 19 130/76 97 5/16/17 05:30 76 19 130/76 97 5/16/17 05:15 80 23 99 5/16/17 05:15 80 23 99 5/16/17 05:15 80 23 99 5/16/17 05:01 77 20 101/66 97 5/16/17 05:01 77 20 101/66 97 5/16/17 05:01 77 20 101/66 97 5/16/17 05:00 77 20 98 5/16/17 05:00 77 20 98 5/16/17 05:00 77 20 98 5/16/17 04:45 75 20 98 5/16/17 04:36 73 22 96/71 5/16/17 04:36 73 22 96/71 5/16/17 04:36 73 22 96/71 5/16/17 04:30 37.0 74 22 Nasal Cannula 2.0 5/16/17 04:30 75 20 98 16/17 04:30 75 20 98 16/17 04:15 78 19 99 16/17 04:15 78 19 99 16/17 04:15 78 19 99 16/17 04:00 75 20 98 16/17 04:00 75 20 98 16/17 04:00 98 Nasal Cannula 2.0 16 04:00 75 20 98 16/17 04:00 106 32 94 1617 04:00 37.0 74 32 127/71 98 Nasal Cannula 2.0 16/17 04:00 75 20 98 16/17 03:45 92 12 98 16/17 03:36 97 14 127/71 96 16/17 03:31 78 34 94/41 97 16/17 03:30 80 35 97 16/17 03:15 85 20 97 16/17 03:00 85 21 123/58 96 16/17 02:45 84 23 97 16/17 02:31 88 21 108/67 98 16/17 02:30 85 21 97 16/17 02:15 88 21 98 16/17 02:00 107 22 150/85 97 16/17 01:45 90 24 95 Nasal Cannula 2.0 16/17 01:45 90 24 95 16/17 01:31 91 22 147/85 96 Nasal Cannula 2.0 16/17 01:31 91 22 147/85 96 16/17 01:30 89 23 95 Nasal Cannula 2.0 16/17 01:30 89 23 95 16/17 01:15 85 20 97 Nasal Cannula 2.0 16/17 01:15 85 20 97 16/17 01:00 96 24 143/87 93 16/17 01:00 96 24 143/87 93 Room Air 07/10/16 00:45 100 24 91 Room Air 16/ 00:45 100 24 91 16 00:30 108 32 165/97 95 16 00:30 108 32 165/97 95 Room Air 16 00:15 94 20 94 16 00:15 94 20 94 Room Air 07/10/16 00:01 102 26 146/79 92 Room Air 07/10/16 00:01 102 26 146/79 92 07/10/16 00:00 36.9 106 32 94 Room Air 07/10/16 00:00 106 32 94 07/10/16 00:00 94 Room Air 07/09/16 23:45 98 24 140/71 92 07/09/16 23:45 98 24 140/71 92 Room Air 07/09/16 23:30 102 24 143/81 93 07/09/16 23:30 102 24 143/81 93 Room Air 07/09/16 23:12 37.0 115 27 144/93 92 Room Air 07/09/16 23:00 37.0 96 27 144/93 92 07/09/16 22:56 96 27 92 07/09/16 22:55 144/93 07/09/16 22:51 106 26 94 07/09/16 22:46 101 21 95 07/09/16 22:45 157/91 07/09/16 22:41 101 28 91 07/09/16 22:40 163/97 07/09/16 22:36 102 31 91 07/09/16 22:35 144/89 07/09/16 22:31 100 30 93 07/09/16 22:26 167/91 07/09/16 22:25 104 29 93 07/09/16 22:20 103 30 182/99 93 07/09/16 22:15 37.0 115 18 151/108 96 Room Air 07/09/16 22:15 108 30 170/93 91 07/09/16 22:10 115 23 175/99 92 07/09/16 22:05 107 22 162/101 93 07/09/16 22:00 112 26 151/108 95 07/09/16 21:55 170/93 07/09/16 21:52 108 33 92 07/09/16 21:50 146/97 07/09/16 21:47 108 45 92 07/09/16 21:45 169/107 07/09/16 21:43 200/109 07/09/16 21:42 126 19 218/137 95 07/09/16 21:39 178/120 07/09/16 21:37 109 30 93 07/09/16 21:35 188/115 07/09/16 21:33 37.0 94 18 207/101 96 Room Air 07/09/16 21:32 107 28 92 07/09/16 21:30 203/114 07/09/16 21:27 99 20 96 07/09/16 21:25 200/117 07/09/16 21:22 98 94 07/09/16 21:19 94 Room Air 07/09/16 21:17 96 95 07/09/16 21:16 199/108 07/09/16 21:12 95 207/119 95 07/09/16 21:07 93 96 07/09/16 21:02 86 96 07/09/16 21:01 216/112 07/09/16 20:57 90 07/09/16 20:57 91 95 07/09/16 20:54 207/101 Vitals: See above. Goal for BP 150s-160s systolic General: Wd/WN obese AA female. No acute distress. Fatigued and somnolent. HEENT: NCAT, PERRLA, EOMI. MMM. Neck supple, no adenopathy. CV: S1, S2, No murmur, rub or gallop. RRR. No carotid bruits. Peripheral pulses equal and intact. Pulm: Lungs clear to auscultation in upper and lower lobes bilaterally Abdomen: Non-tender, non-distended. Bowel sounds active. Obese. Neuro: Patient AAOx3. Knows date, place, name of . Vision and visual sharif intact and is able to read instructions on pill bottle. CN II-XII intact except for CN VII, which shows weakness in the cheek and around the mouth on the left side. Strength 5/5 RUE, RLE. Strength 3/5 RUE proximally, 5/5 distally , with equal reconciling clerk strength to R. LLE 4/5. Heel to cam slower with left heel to right cam. Rapid alternating movements on L side are slower and sloppier than R side. Finger to nose without problem on R side, extremely slow on L side with slow initiation and termination of movement. No hemineglect. No aphasia. Sensation intact diffusely. Diagnostics Laboratory Results Results Past 24 Hours Test 07/09/16 20:53 07/09/16 21:05 07/09/16 21:14 07/09/16 21:45 Range/Units Bedside Prothrombin Time INR 1.1 0.9-1.1 Bedside Glucose 170 70-90 mg/dl White Blood Count 9.82 4.8-10.8 K/uL Red Blood Count 4.19 4.2-5.4 M/uL Hemoglobin 12.1 12.0-16.0 g/dL Hematocrit 37.1 37-47 % Mean Corpuscular Volume 88.5 80-100 fL Mean Corpuscular Hemoglobin 28.9 25-34 pg Mean Corpuscular Hemoglobin Concent 32.6 32-36 g/dl Platelet Count 426 130-400 K/uL Mean Platelet Volume 8.3 7.4-10.4 fL Neutrophils (%) (Auto) 62.0 % Lymphocytes (%) (Auto) 29.7 % Monocytes (%) (Auto) 6.0 % Eosinophils (%) (Auto) 1.7 % Basophils (%) (Auto) 0.2 % Neutrophils # (Auto) 6.08 1.4-6.5 K/uL Lymphocytes # (Auto) 2.92 1.2-3.4 K/uL Monocytes # (Auto) 0.59 0.11-0.59 K/uL Eosinophils # (Auto) 0.17 0-0.5 K/uL Basophils # (Auto) 0.02 0-0.2 K/uL RDW Standard Deviation 41.2 36.4-46.3 fL RDW Coefficient of Variation 12.8 11.5-14.5 % Immature Granulocyte % (Auto) 0.4 % Immature Granulocyte # (Auto) 0.04 0.00-0.02 K/uL Prothrombin Time 10.7 9.0-12.0 SECONDS Prothromb Time International Ratio 1.0 0.9-1.1 Activated Partial Thromboplast Time 28.4 21.0-31.0 SECONDS Partial Thromboplastin Ratio 1.1 Sodium Level 141 136-145 mmol/L Potassium Level 4.3 3.5-5.1 mmol/L Chloride Level 105 98-107 mmol/L Carbon Dioxide Level 28 21-32 mmol/L Anion Gap 8.0 20.0 16-25 mmol/L Blood Urea Nitrogen 15 7-18 mg/dl Creatinine 1.20 0.60-1.20 mg/dl Est Creatinine Clear Calc Drug Dose 78.9 ml/min Estimated GFR () 62.8 Estimated GFR (Non- 54.2 BUN/Creatinine Ratio 12.3 10-20 Random Glucose 174 70-99 mg/dl Calcium Level 9.6 8.5-10.1 mg/dl Total Creatine Kinase 247 26-192 U/L Creatine Kinase MB 1.9 0.5-3.6 ng/ml Creatine Kinase MB Ratio 0.8 0-3.0 Troponin I < 0.015 0-0.045 ng/ml Bedside Hemoglobin 12.2 12.0-16.0 g/dl Bedside Hematocrit 36 37-47 % Bedside Sodium 141 135-144 mEq/L Bedside Potassium 4.3 3.3-5.0 mEq/L Bedside Chloride 101 101-112 mEq/L Bedside Total CO2 24 24-31 mEq/l Bedside Blood Urea Nitrogen 14 7-18 mg/dl Bedside Creatinine 1.1 0.6-1.3 mg/dl Bedside Glucose (other) 177 70-99 mg/dl Bedside Ionized Calcium (Alberto) 1.17 1.12-1.32 mmol/l Urine Color YELLOW Urine Appearance CLOUDY CLEAR Urine pH 6.5 4.5-7.5 Urine Specific Steele 1.016 1.000-1.030 Urine Protein NEG NEG Urine Glucose (UA) NEG NEG Urine Ketones NEG NEG Urine Occult Blood 3+ NEG Urine Nitrite NEG NEG Urine Bilirubin NEG NEG Urine Urobilinogen NEG NEG Urine Leukocyte Esterase MODERATE NEG Urine WBC (Auto) 10-30 0-5 /hpf Urine RBC (Auto) 5-10 0-4 /hpf Urine Hyaline Casts (Auto) 1-5 0-5 /lpf Urine Epithelial Cells (Auto) >30 0-5 /lpf Urine Bacteria (Auto) NEG NEG Urine Opiates Screen NEG NEG Urine Methadone, Qualitative NEG NEG Urine Barbiturates NEG NEG Urine Phencyclidine (PCP) Level NEG NEG Ur Amphetamine/Methamphetamine NEG NEG MDMA (Ecstasy) Screen NEG NEG Urine Benzodiazepines Screen NEG NEG Urine Cocaine Metabolite NEG NEG Urine Marijuana (THC) NEG NEG Test 07/10/16 06:10 07/10/16 12:46 Range/Units White Blood Count 9.93 4.8-10.8 K/uL Red Blood Count 4.08 4.2-5.4 M/uL Hemoglobin 11.9 12.0-16.0 g/dL Hematocrit 36.7 37-47 % Mean Corpuscular Volume 90.0 80-100 fL Mean Corpuscular Hemoglobin 29.2 25-34 pg Mean Corpuscular Hemoglobin Concent 32.4 32-36 g/dl Platelet Count 426 130-400 K/uL Mean Platelet Volume 8.4 7.4-10.4 fL Neutrophils (%) (Auto) 64.0 % Lymphocytes (%) (Auto) 29.5 % Monocytes (%) (Auto) 4.3 % Eosinophils (%) (Auto) 1.6 % Basophils (%) (Auto) 0.3 % Neutrophils # (Auto) 6.35 1.4-6.5 K/uL Lymphocytes # (Auto) 2.93 1.2-3.4 K/uL Monocytes # (Auto) 0.43 0.11-0.59 K/uL Eosinophils # (Auto) 0.16 0-0.5 K/uL Basophils # (Auto) 0.03 0-0.2 K/uL RDW Standard Deviation 42.0 36.4-46.3 fL RDW Coefficient of Variation 12.9 11.5-14.5 % Immature Granulocyte % (Auto) 0.3 % Immature Granulocyte # (Auto) 0.03 0.00-0.02 K/uL Prothrombin Time 10.6 9.0-12.0 SECONDS Prothromb Time International Ratio 1.0 0.9-1.1 Sodium Level 140 136-145 mmol/L Potassium Level 4.3 3.5-5.1 mmol/L Chloride Level 106 98-107 mmol/L Carbon Dioxide Level 28 21-32 mmol/L Anion Gap 6.0 3-11 mmol/L Blood Urea Nitrogen 18 7-18 mg/dl Creatinine 1.10 0.60-1.20 mg/dl Est Creatinine Clear Calc Drug Dose 83.0 ml/min Estimated GFR () 69.7 Estimated GFR (Non- 60.2 BUN/Creatinine Ratio 16.6 10-20 Random Glucose 130 70-99 mg/dl Estimated Average Glucose 137 mg/dl Hemoglobin A1c 6.4 4.5-5.6 % Calcium Level 9.1 8.5-10.1 mg/dl Total Bilirubin 0.3 0.2-1 mg/dl Aspartate Amino Transf (AST/SGOT) 11 15-37 U/L Alanine Aminotransferase (ALT/SGPT) 21 12-78 U/L Alkaline Phosphatase 72 45-117 U/L Troponin I < 0.015 0-0.045 ng/ml Total Protein 7.5 6.4-8.2 gm/dl Albumin 3.4 3.4-5.0 gm/dl Globulin 4.1 2.5-4.0 gm/dl Albumin/Globulin Ratio 0.8 0.9-2 Triglycerides Level 129 0-150 mg/dl Cholesterol Level 228 0-200 mg/dl HDL Cholesterol 62 mg/dl LDL Cholesterol, Calculated 140 mg/dl VLDL Cholesterol, Calculated 26 mg/dl Cholesterol/HDL Ratio 3.7 Microbiology Results 07/09/16 MRSA DNA Surveillance Screen - Final, Complete Specimen Negative for MRSA by DNA Probe 07/09/16 Urine Culture - Final, Complete MORE THAN THREE TYPES OF ORGANISMS VA... Diagnostic Radiology CT Head: No intracranial pathology Brain MRI: 1. Acute/subacute infarct posterior limb right internal capsule. 2. Mild chronic small vessel change. Head MRA: No aneurysms of [place] of [place]. Neck MRA: No carotid stenosis. Some vertebral artery stenosis Abdominal US: No renal artery stenosis CXR normal EKG ECG: NSR, LVH. Echo: 1. Normal left ventricular size and systolic function. EF 60-65%. No regional wall motion abnormalities. Moderate concentric left ventricular hypertrophy. Type 2 diastolic dysfunction, pseudo normalized pattern. * 2. No visualized ASD or PFO via 2D imaging. No right to left inter atrial shunt visualized following agitated saline injection. * 3. No significant valvular abnormalities. * 4. Normal estimated right ventricular systolic pressure; 23 mmHg. * 5. No prior study available for comparison. Impression Assessment and Plan Ms Asya Vazquez is a 45 yo AA female with an almost 20 year history of htn who presented to the ED last night with acute stroke symptoms. She was given tPA , and MRI shows an acute ischemic infarct of the posterior limb of the R internal capsule. She is now ~20 hours post TPA and her neurologic symptoms continue to improve. Individual assessment and plan are as follows: 1. Acute Ischemic Stroke: Status: acute, improving. Patient is ~20 hours post TPA. Her facial droop has improved from this morning but is still slightly present. She still has pronounced weakness and slow movements of her LUE, her "sloth hand". Her weakness appears to be more proximal, with distal strength intact. Speech, PT, OT already consulted. Will continue in ICU per tPA protocol to monitor for signs of hemorrhagic stroke or other bleeding. Will start 81mg ASA once acute tPA window is over. 2. HTN: Chronic, uncontrolled. Patient currently on valsartan-HCTZ 160-25. This medication has been d/c by intensive care, to be replaced by a lower dose oral antihypertensive aided by nifidipine drip. Will continue to monitor BP with goal being 150s-160s systolic. 3. HLD: Patient was on 10mg atorvostatin on admission. Was given 80mg atorvostatin for lipid stabiliation. Will likely continue on high-dose statin therapy. 4. Obesity: Chronic. Both patient and are willing to talk about stroke prevention following acute phase of stroke. Weight loss through diet and exercise will be discussed. 5. VTE prophylaxis: Contraindicated at this time due to tPA. 6. Disposition: Continued admission in ICU for signs of acute hemorrhagic stroke following tPA. Normal diet. Level of Care Critical Care Advanced Directives Existing Living Will: No Existing Power of Reporting Process Consultant: No Resuscitation Status FULL RESUSCITATION DVT Prophylaxis Prophylaxis Contraindication: Medical contraindication (received TPA last night )
--- NOTE | 2016-07-10 22:24 | DIAGNOSTIC IMAGING REPORT ---
CT HEAD WITHOUT CONTRAST (CT) CLINICAL HISTORY: Stroke status post TPA administration. Evaluate for hemorrhage. COMPARISON STUDY: July 09, 2016 TECHNIQUE: Axial CT of the brain is performed from the vertex to the skull base. IV contrast was not administered for this examination. CT DOSE: 751.47 mGy.cm FINDINGS: There is a new hypodensity in the region of the posterior limb of the right internal capsule consistent with an acute/subacute infarct. There is no evidence of acute hemorrhage. There is no significant midline shift. There are patchy white matter hypodensities likely on a small vessel basis. There is no evidence of pathologic ventricular dilatation. There is no evidence of acute sinusitis IMPRESSION: Acute/subacute infarct in the region of the posterior limb of the right internal capsule. No evidence of acute hemorrhage. Electronically signed by: Markell Ramsey M.D. 07/10/2016 10:23 PM Dictated Date/Time: 07/10/2016 10:20 PM
[2016-07-11] VITALS (16 sets, daily range): BP systolic 109–158; BP diastolic 69–106; PULSE 68–84; TEMP 36.6–37.3; O2SAT 92–100; Ht 165.1 cm; Wt 121.7 kg
[2016-07-11 06:17] LABS: BASO % 0.2 %; BASO ABS # 0.02 K/uL (0-0.2); COMPLETE YES; EOS % 2.9 %; HEMATOCRIT 36.3 % (37-47); IG% 0.4 %; LYMPH % 30.7 %; LYMPH ABS # 2.52 K/uL (1.2-3.4); MEAN CORPUSCULAR HEMOGLOBIN 29.3 pg (25-34); MEAN CORPUSCULAR HGB CONC 32.2 g/dl (32-36); MEAN PLATELET VOLUME 8.4 fL (7.4-10.4); MONO % 7.9 %; NEUT % 57.9 %; PLATELET COUNT 399 K/uL (130-400); RED BLOOD COUNT 3.99 M/uL (4.2-5.4); WHITE BLOOD COUNT 8.21 K/uL (4.8-10.8)
[2016-07-11 06:22] LABS: PROTHROMBIN TIME (PATIENT) 10.6 SECONDS (9.0-12.0)
[2016-07-11 06:46] LABS: BUN/CREATININE RATIO 14.4 (10-20); CALCIUM 8.6 mg/dl (8.5-10.1); CREATININE 1.2 mg/dl (0.60-1.20); POTASSIUM 4.2 mmol/L (3.5-5.1)
[2016-07-11] MEDS ORDERED: AMLODIPINE BESYLATE 5 MG TAB PO SCH (09:00)
[2016-07-11] MEDS ORDERED: VALSARTAN 80 MG TAB PO SCH (09:00)
[2016-07-11] MEDS: HYDROCHLOROTHIAZIDE 25 MG TAB PO SCH (09:13)
[2016-07-11] MEDS: ATORVASTATIN 40 MG TAB PO SCH (10:29)
[2016-07-11] MEDS ORDERED: LABETALOL HCL IV 5 MG/ML 20ML IV PRN (11:15)
--- NOTE | 2016-07-11 11:33 | Critical Care Progress Note ---
Critical Care Progress Note Date of Service July 11, 2016. Attending Dr. Júnior Navarrete 45-year-old female with a past medical history of hypertension, hyperlipidemia, status post cholecystectomy presented to the to the ER as a stroke alert after developing slurring of speech, left upper extremity weakness and facial droop at around 1930 last evening. She was hypertensive on arrival and was started on labetalol and nicardipine and also received TPA after head CT was negative for hemorrhage. She has a history of hypertension from late 20s and has been controlling it with 2 blood pressure medications. She was admitted to the ICU, post TPA day 2 doing better , has been out of bed in chair . continues to complain of left sided weakness which is unchanged from yesterday. denies nay headache, blurriness of vision slurring of speech or any new N/T Or weakness Objective GENERAL: Patient is in no acute distress, obese HEENT: No acute trauma, normocephalic atraumatic, mucous membranes moist, no nasal congestion, no scleral icterus. NECK: trachea is midline. LUNGS: Clear to auscultation bilaterally, no wheeze, no rhonchi, breath sounds equal. HEART: Without murmurs gallops or rubs, regular rate and rhythm. ABDOMEN: Soft, nontender, bowel sounds positive, no hernias, no peritonitis. EXTREMITIES: No cyanosis or edema, full range of motion of all the joints without pain or difficulty, no signs for acute trauma. NEUROLOGIC: Oriented x 3, left facial droop, left sided upper extremity strength 3/5 and LLE 4/5. Sensation intact. finger nose dysmetria SKIN: No rash Assessment & Plan 45 year old with uncontrolled hypertension and hyperlipidemia presents to the ER left sided facial droop and slurred speech s/p stroke call with administration of tPA at 3 hours 20 minutes post symptoms (21:52 07/09/16) doing well Neuro: CVA status post TPA: day2 - Head CT:There is no hemorrhage, mass effect, or evidence of acute territorial ischemia by CT criteria - MRI brain : 1. Acute/subacute infarct posterior limb right internal capsule. 2. Mild chronic small vessel change. - MRA head: No significant stenosis, occlusion, or aneurysm within the hoopa of [place]. - MRA Neck: No significant stenosis, occlusion, or dissection identified within the bilateral carotid arteries. Mild stenosis within the bilateral proximal vertebral arteries - Stroke /post TPA protocol - Echo : * 1. Normal left ventricular size and systolic function. EF 60-65%. No regional wall motion abnormalities. Moderate concentric left ventricular hypertrophy. Type 2 diastolic dysfunction, pseudo normalized pattern. * 2. No visualized ASD or PFO via 2D imaging. No right to left inter atrial shunt visualized following agitated saline injection. * 3. No significant valvular abnormalities. * 4. Normal estimated right ventricular systolic pressure; 23 mmHg. * 5. No prior study available for comparison. - Speech/PT/OT consult- appreciate recs - maintain BP between 140-160 Systolic - Continue statin, aspirin - work up for hypercoagulable state - appreciate neuro recs CVS: Uncontrolled HTN: - was on nicardipine drip-maintain NBP between 140-160 for perfusion - labetalol 5 mg PRN 30 min if SBP>180 , DBP>105 - renal US for CASA - negative - Restarted losartan at 80 mg and HCTZ at 12.5 mg , may titrate up to home dose based on control Hyperlipidemia: - Continue atorvastatin Resp: PIEDAD: - maintaining saturations>96 on RA - will need further workup as an OP- stress echo etc Concern of PRITI- was to have a sleep study as an OP - nocturnal pulse oximetry GI/FEN: - speech eval- appreciate recs - AHA diet Heme: - hypercoagulable workup for stroke- ordered Beta 2 microglobulin, lupus anticog , homocysteine, anticardiolipin ab, PTG mutation - will need follow up with hematology upon discharge DVT prophylaxis - SCDS Full code Disposition - transfer to tele Resident Physician Supervision Note/Clinical Quality Assurance Specialist Attending I interviewed and examined the patient. Discussed with Dr. Ross and agree with findings and plan as documented in the note. Any exceptions or clarifications are listed here: The patient's care was discussed on multidisciplinary rounds. Yesterday afternoon, SBP was greater than 180mmHg - labetalol given and patient resumed on half home dose of valsartan/HCTZ with MAP's 70-100. No PRN's or nicardipine overnight. She feels she is about the same as yesterday and is very discouraged. CT brain repeated last night. - no new findings. My neuro exam is not significantly different from yesterday and is consistent with Dr. Ross' s. She has been started on ASA and high dose statin. She is getting PT/OT/ST. Hypercoag workup started and will need to be followed as an outpatient. She is stable for transfer to telemetry. Documented By: Selina Callejas Consults & Procedures Consultants: Neurology Procedures: TPA Data Medications: Current Inpatient Medications Medications (Trade) Dose Ordered Sig/Douglas Route Start Time Stop Time Status Last Admin Dose Admin Miscellaneous Information (Pharmacist Discharge Med Rec Consult) 1 ea UD PRN N/A 07/09/16 22:30 08/08/16 22:29 Atorvastatin Calcium (Lipitor Tab) 80 mg QAM PO 07/10/16 09:00 08/09/16 08:59 07/11/16 10:29 80 MG Gadobutrol (Gadavist) 12 mmol UD PRN IV 07/10/16 13:45 07/14/16 13:44 Valsartan (Diovan Tab) 80 mg DAILY PO 07/11/16 09:00 08/10/16 08:59 07/11/16 09:13 80 MG Hydrochlorothiazide (Hydrochlorothiazide Tab) 12.5 mg DAILY PO 07/11/16 09:00 08/10/16 08:59 07/11/16 09:13 12.5 MG Aspirin (Ecotrin Tab) 81 mg DAILY PO 07/12/16 09:00 08/11/16 08:59 Labetalol HCl (Normodyne IV) 5 mg Q30M PRN IV 07/11/16 11:15 08/10/16 11:14 UNV I & O: 24-Hour Column 07/11/16 07:59 Intake Total 1092 ml Output Total 200 ml Balance 892 ml Vital Signs: Date Time Temp Pulse Resp B/P Pulse Ox O2 Delivery O2 Flow Rate FiO2 07/11/16 10:00 73 19 125/82 94 Room Air 07/11/16 08:00 36.6 70 16 144/81 94 Nasal Cannula 2.0 07/11/16 08:00 97 Nasal Cannula 2.0 07/11/16 06:00 36.7 80 18 134/83 92 Room Air 07/11/16 05:00 75 21 109/69 98 07/11/16 05:00 75 21 98 07/11/16 04:00 75 21 111/71 97 07/11/16 04:00 97 Room Air 07/11/16 03:00 79 19 146/84 100 07/11/16 03:00 Nasal Cannula 2.0 07/11/16 02:00 68 17 137/74 99 07/11/16 01:00 71 20 145/75 96 07/11/16 00:01 81 23 125/75 94 Room Air 07/10/16 23:59 97 Room Air 07/10/16 22:44 74 22 144/87 93 07/10/16 22:06 80 21 153/76 91 07/10/16 21:30 76 18 172/78 92 07/10/16 21:00 96 22 131/86 96 07/10/16 20:30 82 21 148/78 93 Room Air 07/10/16 20:07 97 Room Air 07/10/16 20:00 36.9 81 13 144/83 07/10/16 19:30 81 17 150/101 07/10/16 19:00 74 22 150/75 07/10/16 18:30 37.0 74 20 145/91 97 Room Air 07/10/16 17:30 74 20 147/80 95 Room Air 07/10/16 16:30 36.8 69 20 176/85 95 Room Air 07/10/16 16:00 98 Room Air 07/10/16 15:32 73 07/10/16 15:30 37.0 78 20 182/88 94 Room Air 07/10/16 14:30 37.0 67 18 189/126 95 Room Air 07/10/16 13:30 97 Room Air 07/10/16 13:30 37.0 79 20 189/111 95 Room Air 07/10/16 11:30 36.8 71 22 148/70 97 Room Air Laboratory Results: Last 24 Hours Test 07/10/16 20:39 07/11/16 05:49 Bedside Glucose 127 mg/dl White Blood Count 8.21 K/uL Red Blood Count 3.99 M/uL Hemoglobin 11.7 g/dL Hematocrit 36.3 % Mean Corpuscular Volume 91.0 fL Mean Corpuscular Hemoglobin 29.3 pg Mean Corpuscular Hemoglobin Concent 32.2 g/dl Platelet Count 399 K/uL Mean Platelet Volume 8.4 fL Neutrophils (%) (Auto) 57.9 % Lymphocytes (%) (Auto) 30.7 % Monocytes (%) (Auto) 7.9 % Eosinophils (%) (Auto) 2.9 % Basophils (%) (Auto) 0.2 % Neutrophils # (Auto) 4.75 K/uL Lymphocytes # (Auto) 2.52 K/uL Monocytes # (Auto) 0.65 K/uL Eosinophils # (Auto) 0.24 K/uL Basophils # (Auto) 0.02 K/uL RDW Standard Deviation 43.1 fL RDW Coefficient of Variation 13.0 % Immature Granulocyte % (Auto) 0.4 % Immature Granulocyte # (Auto) 0.03 K/uL Prothrombin Time 10.6 SECONDS Prothromb Time International Ratio 1.0 Sodium Level 140 mmol/L Potassium Level 4.2 mmol/L Chloride Level 106 mmol/L Carbon Dioxide Level 30 mmol/L Anion Gap 4.0 mmol/L Blood Urea Nitrogen 17 mg/dl Creatinine 1.20 mg/dl Est Creatinine Clear Calc Drug Dose 76.4 ml/min Estimated GFR () 62.8 Estimated GFR (Non- 54.2 BUN/Creatinine Ratio 14.4 Random Glucose 131 mg/dl Calcium Level 8.6 mg/dl Resident Tracking Resident Involvement: Resident Care Provided Care Provided: Adult Hospital Medicine
[2016-07-11] MEDS ORDERED: PHARMACIST DISCHARGE MED REC CONSULT PRN (11:45)
--- NOTE | 2016-07-11 13:05 | Neurology Progress Notes ---
Neurology Progress Note Date of Service July 11, 2016. Subjective Follow-up for stroke. The patient continues to complain of weakness of the left upper limb as well as some associated difficulty with swallowing. She feels that the symptoms are not significantly changed compared with yesterday. I reviewed the images and radiologist's interpretation of the recently completed brain MRI. The study reveals an acute ischemic infarct involving the posterior limb of the right internal capsule. MRA of the head and neck are generally unremarkable. No evidence of human adequately significant stenosis or other vascular lesion. An echocardiogram revealed a normal ejection fraction, no cardioembolic source, no PFO. Hypercoagulable panel has been ordered and is pending. Objective Date Time Temp Pulse Resp B/P Pulse Ox O2 Delivery O2 Flow Rate FiO2 07/11/16 12:00 37.1 84 18 136/106 93 Room Air 07/11/16 12:00 93 Room Air 07/11/16 11:30 73 94 07/11/16 10:00 73 19 125/82 94 Room Air 07/11/16 08:00 36.6 70 16 144/81 94 Nasal Cannula 2.0 07/11/16 08:00 97 Nasal Cannula 2.0 07/11/16 06:00 36.7 80 18 134/83 92 Room Air 07/11/16 05:00 75 21 109/69 98 07/11/16 05:00 75 21 98 07/11/16 04:00 75 21 111/71 97 07/11/16 04:00 97 Room Air 07/11/16 03:00 79 19 146/84 100 07/11/16 03:00 Nasal Cannula 2.0 07/11/16 02:00 68 17 137/74 99 07/11/16 01:00 71 20 145/75 96 07/11/16 00:01 81 23 125/75 94 Room Air 07/10/16 23:59 97 Room Air 07/10/16 22:44 74 22 144/87 93 07/10/16 22:06 80 21 153/76 91 07/10/16 21:30 76 18 172/78 92 07/10/16 21:00 96 22 131/86 96 07/10/16 20:30 82 21 148/78 93 Room Air 07/10/16 20:07 97 Room Air 07/10/16 20:00 36.9 81 13 144/83 07/10/16 19:30 81 17 150/101 07/10/16 19:00 74 22 150/75 07/10/16 18:30 37.0 74 20 145/91 97 Room Air 07/10/16 17:30 74 20 147/80 95 Room Air 07/10/16 16:30 36.8 69 20 176/85 95 Room Air 07/10/16 16:00 98 Room Air 07/10/16 15:32 73 07/10/16 15:30 37.0 78 20 182/88 94 Room Air 07/10/16 14:30 37.0 67 18 189/126 95 Room Air 07/10/16 13:30 97 Room Air 07/10/16 13:30 37.0 79 20 189/111 95 Room Air Last 24 Hours Test 07/10/16 20:39 07/11/16 05:49 07/11/16 12:35 Bedside Glucose 127 mg/dl White Blood Count 8.21 K/uL Red Blood Count 3.99 M/uL Hemoglobin 11.7 g/dL Hematocrit 36.3 % Mean Corpuscular Volume 91.0 fL Mean Corpuscular Hemoglobin 29.3 pg Mean Corpuscular Hemoglobin Concent 32.2 g/dl Platelet Count 399 K/uL Mean Platelet Volume 8.4 fL Neutrophils (%) (Auto) 57.9 % Lymphocytes (%) (Auto) 30.7 % Monocytes (%) (Auto) 7.9 % Eosinophils (%) (Auto) 2.9 % Basophils (%) (Auto) 0.2 % Neutrophils # (Auto) 4.75 K/uL Lymphocytes # (Auto) 2.52 K/uL Monocytes # (Auto) 0.65 K/uL Eosinophils # (Auto) 0.24 K/uL Basophils # (Auto) 0.02 K/uL RDW Standard Deviation 43.1 fL RDW Coefficient of Variation 13.0 % Immature Granulocyte % (Auto) 0.4 % Immature Granulocyte # (Auto) 0.03 K/uL Prothrombin Time 10.6 SECONDS Prothromb Time International Ratio 1.0 Sodium Level 140 mmol/L Potassium Level 4.2 mmol/L Chloride Level 106 mmol/L Carbon Dioxide Level 30 mmol/L Anion Gap 4.0 mmol/L Blood Urea Nitrogen 17 mg/dl Creatinine 1.20 mg/dl Est Creatinine Clear Calc Drug Dose 76.4 ml/min Estimated GFR () 62.8 Estimated GFR (Non- 54.2 BUN/Creatinine Ratio 14.4 Random Glucose 131 mg/dl Calcium Level 8.6 mg/dl Exam: The patient is alert and oriented to person place and time. Attention and concentration somewhat reduced. Recent and remote memory intact. Naming and repetition intact. Vocabulary normal. Visual sharif full to confrontation. Visual acuity normal. Pupils equal round reactive to light and accommodation. Eye movements normal. Facial sensation intact bilaterally. There is a left lower facial droop present. Palate elevates to midline. Tongue protrudes to midline. Shoulder shrug and hearing intact bilaterally. There is poor movement initiation with finger to nose on the left. There is dysmetria with finger to nose and heel to cam on the left as well. Deep tendon reflexes are relatively increased for the left arm and leg. The left plantar responses upgoing, the right plantar response is downgoing. Left upper extremity strength 3-4 out of 5 proximally and distally. Left lower extremity strength 4 out of 5. Muscle tone normal throughout. No atrophy or abnormal movements. Sensation to light touch and vibration intact for the arms and legs bilaterally. Current Inpatient Medications Medications (Trade) Dose Ordered Sig/Douglas Route Start Time Stop Time Status Last Admin Dose Admin Miscellaneous Information (Pharmacist Discharge Med Rec Consult) 1 ea UD PRN N/A 07/09/16 22:30 08/08/16 22:29 Atorvastatin Calcium (Lipitor Tab) 80 mg QAM PO 07/10/16 09:00 08/09/16 08:59 07/11/16 10:29 80 MG Gadobutrol (Gadavist) 12 mmol UD PRN IV 07/10/16 13:45 07/14/16 13:44 Valsartan (Diovan Tab) 80 mg DAILY PO 07/11/16 09:00 08/10/16 08:59 07/11/16 09:13 80 MG Hydrochlorothiazide (Hydrochlorothiazide Tab) 12.5 mg DAILY PO 07/11/16 09:00 08/10/16 08:59 07/11/16 09:13 12.5 MG Aspirin (Ecotrin Tab) 81 mg DAILY PO 07/12/16 09:00 08/11/16 08:59 Labetalol HCl (Normodyne IV) 5 mg Q30M PRN IV 07/11/16 11:15 08/10/16 11:14 Impression Acute ischemic infarct to the posterior limb of the right internal capsule producing a left hemiparesis affecting the face arm and leg. 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 Poorly controlled hypertension significant risk factor in this patient. Plan Patient should start antiplatelet therapy, aspirin 81 mg per day would be appropriate. Patient will need ongoing management of hypertension to ensure adequate control going forward. PT/OT/speech therapy. Follow up with results of hypercoagulable panel when available. No further recommendations
--- NOTE | 2016-07-11 16:43 | Family Medicine Progress Note ---
Progress Note Date of Service July 11, 2016. Subjective Pt evaluation today including: conversation w/ patient, conversation w/ family , physical exam, chart review, lab review, review of studies, review of inpatient medication list Pain: 0/10 PO Intake: WNL Voiding: no voiding problems Patient has minimal improvement in the slow movement of the left UE, she is also rather fatigued during the interview so a ROS was very limited The was once again tearful when discussing the patient's care, was reassured Constitutional: No fever Eyes: No worsening of vision ENT: No hearing loss Respiratory: No cough, No shortness of breath Cardiovascular: No chest pain Abdomen: No pain Neurologic: + problem reported (as above), + weakness, No numbness/tingling Endo: + fatigue Skin: No rash Medications Medications Administered Medications (Trade) Dose Ordered Sig/Douglas Route Start Time Stop Time Status Last Admin Dose Admin Nicardipine HCl 25 mg/Sodium Chloride 250 ml @ 0 mls/hr Q0M PRN IV 07/09/16 21:00 07/09/16 23:23 DC 07/09/16 21:15 5 MLS/HR Alteplase, Recombinant 81 mg/ Empty Bag 81 ml @ 81 mls/hr TODAY@2115 IV 07/09/16 21:15 07/09/16 22:14 DC 07/09/16 21:54 81 MLS/HR Alteplase, Recombinant/ Syringe (Activase Inj/ Syringe) 18 ml @ 9 mls/min TODAY@2115 IV 07/09/16 21:15 07/09/16 21:16 DC 07/09/16 21:54 9 MLS/MIN Atorvastatin Calcium 80 mg 80 mg QAM PO 07/10/16 09:00 08/09/16 08:59 07/11/16 10:29 80 MG Nicardipine HCl 25 mg/Sodium Chloride 250 ml @ 0 mls/hr Q0M PRN IV 07/09/16 23:10 07/10/16 08:11 DC 07/10/16 01:21 50 MLS/HR Sodium Chloride 1,000 ml @ 50 mls/hr Q20H IV 07/10/16 00:15 07/11/16 10:55 DC 07/10/16 19:52 50 MLS/HR Insulin Human Regular/Syringe (novoLIN-R/ Syringe) 2 ml @ 1 mls/min TODAY@0015 IV 07/10/16 00:15 07/10/16 00:16 DC 07/10/16 00:55 1 MLS/MIN Labetalol HCl (Normodyne IV) 5 mg STK-MED ONCE IV 07/10/16 14:46 07/10/16 14:47 DC 07/10/16 14:53 5 MG Valsartan (Diovan Tab) 80 mg DAILY PO 07/11/16 09:00 08/10/16 08:59 07/11/16 09:13 80 MG Valsartan (Diovan Tab) 80 mg 1530 ONCE PO 07/10/16 15:30 07/10/16 15:31 DC 07/10/16 15:44 80 MG Hydrochlorothiazide (Hydrochlorothiazide Tab) 12.5 mg DAILY PO 07/11/16 09:00 08/10/16 08:59 07/11/16 09:13 12.5 MG Hydrochlorothiazide (Hydrochlorothiazide Tab) 12.5 mg 1530 ONCE PO 07/10/16 15:30 07/10/16 15:31 DC 07/10/16 15:45 12.5 MG Objective Vital Signs Date Time Temp Pulse Resp B/P Pulse Ox O2 Delivery O2 Flow Rate FiO2 07/11/16 16:00 Room Air 07/11/16 15:19 37.0 76 16 152/99 96 Room Air 07/11/16 12:00 37.1 84 18 136/106 93 Room Air 07/11/16 12:00 93 Room Air 07/11/16 11:30 73 94 07/11/16 10:00 73 19 125/82 94 Room Air 07/11/16 08:00 36.6 70 16 144/81 94 Nasal Cannula 2.0 07/11/16 08:00 97 Nasal Cannula 2.0 07/11/16 06:00 36.7 80 18 134/83 92 Room Air 07/11/16 05:00 75 21 109/69 98 07/11/16 05:00 75 21 98 07/11/16 04:00 75 21 111/71 97 07/11/16 04:00 97 Room Air 07/11/16 03:00 79 19 146/84 100 07/11/16 03:00 Nasal Cannula 2.0 07/11/16 02:00 68 17 137/74 99 07/11/16 01:00 71 20 145/75 96 07/11/16 00:01 81 23 125/75 94 Room Air 07/10/16 23:59 97 Room Air 07/10/16 22:44 74 22 144/87 93 07/10/16 22:06 80 21 153/76 91 07/10/16 21:30 76 18 172/78 92 07/10/16 21:00 96 22 131/86 96 07/10/16 20:30 82 21 148/78 93 Room Air 07/10/16 20:07 97 Room Air 07/10/16 20:00 36.9 81 13 144/83 07/10/16 19:30 81 17 150/101 07/10/16 19:00 74 22 150/75 07/10/16 18:30 37.0 74 20 145/91 97 Room Air 07/10/16 17:30 74 20 147/80 95 Room Air Physical Exam General Appearance: no apparent distress Eyes: normal inspection ENT: + pertinent finding (left facial drooping) Neck: supple Respiratory/Chest: normal breath sounds, no respiratory distress, no accessory muscle use Cardiovascular: regular rate, rhythm, no murmur Abdomen: normal bowel sounds, non tender, soft Extremities: no pedal edema, no calf tenderness, + pertinent finding (slow movement of the left UE compared to right, 4/5 motor strength in left UE and 5/ 5 in right) Neurologic/Psychiatric: alert, normal mood/affect, oriented x 3 Skin: normal color, warm/dry, no rash Lymphatic: no adenopathy Laboratory Results Results Past 24 Hours Test 07/10/16 20:39 07/11/16 05:49 07/11/16 11:28 07/11/16 12:35 Range/Units Bedside Glucose 127 122 70-90 mg/dl White Blood Count 8.21 4.8-10.8 K/uL Red Blood Count 3.99 4.2-5.4 M/uL Hemoglobin 11.7 12.0-16.0 g/dL Hematocrit 36.3 37-47 % Mean Corpuscular Volume 91.0 80-100 fL Mean Corpuscular Hemoglobin 29.3 25-34 pg Mean Corpuscular Hemoglobin Concent 32.2 32-36 g/dl Platelet Count 399 130-400 K/uL Mean Platelet Volume 8.4 7.4-10.4 fL Neutrophils (%) (Auto) 57.9 % Lymphocytes (%) (Auto) 30.7 % Monocytes (%) (Auto) 7.9 % Eosinophils (%) (Auto) 2.9 % Basophils (%) (Auto) 0.2 % Neutrophils # (Auto) 4.75 1.4-6.5 K/uL Lymphocytes # (Auto) 2.52 1.2-3.4 K/uL Monocytes # (Auto) 0.65 0.11-0.59 K/uL Eosinophils # (Auto) 0.24 0-0.5 K/uL Basophils # (Auto) 0.02 0-0.2 K/uL RDW Standard Deviation 43.1 36.4-46.3 fL RDW Coefficient of Variation 13.0 11.5-14.5 % Immature Granulocyte % (Auto) 0.4 % Immature Granulocyte # (Auto) 0.03 0.00-0.02 K/uL Prothrombin Time 10.6 9.0-12.0 SECONDS Prothromb Time International Ratio 1.0 0.9-1.1 Sodium Level 140 136-145 mmol/L Potassium Level 4.2 3.5-5.1 mmol/L Chloride Level 106 98-107 mmol/L Carbon Dioxide Level 30 21-32 mmol/L Anion Gap 4.0 3-11 mmol/L Blood Urea Nitrogen 17 7-18 mg/dl Creatinine 1.20 0.60-1.20 mg/dl Est Creatinine Clear Calc Drug Dose 76.4 ml/min Estimated GFR () 62.8 Estimated GFR (Non- 54.2 BUN/Creatinine Ratio 14.4 10-20 Random Glucose 131 70-99 mg/dl Calcium Level 8.6 8.5-10.1 mg/dl Test 07/11/16 16:03 Range/Units Bedside Glucose 97 70-90 mg/dl Assessment and Plan 45 year old with uncontrolled hypertension and hyperlipidemia presents to the ER left sided facial droop and slurred speech s/p stroke call with administration of tPA at 3 hours 20 minutes post symptoms (21:52 07/09/16). Patient had some improvement in her symptoms after administration however her symptoms did persist. 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 Her MRA was unremarkable except for mild proximal bilat vertebral artery stenosis. She was admitted with a systolic blood pressure of > 200. She was placed on a nicardipine drip while in the ICU and transitioned to oral agents. CVA s/p tPA - recommendations based on [facility] neurologist Dr Rosenthal - MRI brain combo, MRA head, MRA neck combo - acute/ subacute posterior limb right int capsule infarct - mild proximal bilat vertebral artery stenosis - CT head at 24 hours post- neg for hemm - Echo - LV nm - LVH concentric moderate - EF 60-65% - no regional wall motion abnormalities - valves WNL - RV systolic pressure 23 mmHg - Speech consult completed - Consult neurology- appreciate input Hypertension - aim BP <180 and dBP <105 - Nicardipine drip has been d/c but available prn - labetalol prn available - currently on valsartan and hctz - Renal USG - no renal artery stenosis Hyperlipidemia - atorvastatin 80mg PO daily HBA1C 6.4%, Pre diabetic - Would benefit from elementary educator - will continue to encourage healthy lifestyle choice VTE Prophylaxis - SCDs for first [address] head Code - Full Disposition - transfer to tele, if bp stable will d/c to rehab potentially tomorrow Resident Physician Supervision Note: I interviewed and examined the patient. Discussed with Dr. Mendez and agree with findings and plan as documented in the note. Any exceptions or clarifications are listed here: None Documented By: Abran Hong feeling about the same, appearing to maybe move a little better than yesterday no other new complaints ros otherwise negative except for as above vitals noted nad breathing unlabored L facial droop and arm weakness about the same maybe slightly better than yesterday definitely not worse CVA - HTN as main risk - med management, rehab otherwise as above stable for tele Continued [facility] stay due to: other Discharge planning: rehab hospital
--- NOTE | 2016-07-11 16:58 | Medical Student: [facility] ---
Med Student Progress Note Date of Service July 11, 2016. Subjective Pt evaluation today including: conversation w/ patient, conversation w/ family (), physical exam, chart review, lab review, review of studies Voiding: no voiding problems, no incontinence Ms Asya Vazquez is a 45 yo female who experienced an acute ischemic infarct of the posterior limb of her R internal capsule two days ago. She was given tPA ~40 hours ago and has not experienced any recurrent symptoms or showed signs of hemorrhagic infarct since that time. She notes persistent weakness and bradykinesia of the LUE, but produce inspector strength is intact. She continues to have some L sided facial droop, which seems to have improved in the last 24 hours. She was transitioned to oral antihypertensives this morning, and her blood pressures have thus far been stable, and she has not experienced any associated headache, palpitations, chest pain, n/v, constipation, diarrhea, or urinary symptoms. She notes she is ready to "get out of here". Review of Systems Constitutional: + fatigue, + weakness, No chills, No fever, No sweats, No weight loss Eyes: No problem reported ENT: No problem reported Respiratory: No problem reported Cardiac: No problem reported Abdomen: No problem reported Musculoskeletal: No problem reported Female : No problem reported Neurologic: + problem reported (facial droop), + weakness (LUE, proximal strength, bradykinesia) Psychiatric: No problem reported Objective Vital Signs Date Time Temp Pulse Resp B/P Pulse Ox O2 Delivery O2 Flow Rate FiO2 07/11/16 16:00 Room Air 07/11/16 15:19 37.0 76 16 152/99 96 Room Air 07/11/16 12:00 37.1 84 18 136/106 93 Room Air 07/11/16 12:00 93 Room Air 07/11/16 11:30 73 94 07/11/16 10:00 73 19 125/82 94 Room Air 07/11/16 08:00 36.6 70 16 144/81 94 Nasal Cannula 2.0 07/11/16 08:00 97 Nasal Cannula 2.0 07/11/16 06:00 36.7 80 18 134/83 92 Room Air 07/11/16 05:00 75 21 109/69 98 07/11/16 05:00 75 21 98 07/11/16 04:00 75 21 111/71 97 07/11/16 04:00 97 Room Air 07/11/16 03:00 79 19 146/84 100 07/11/16 03:00 Nasal Cannula 2.0 07/11/16 02:00 68 17 137/74 99 07/11/16 01:00 71 20 145/75 96 07/11/16 00:01 81 23 125/75 94 Room Air 07/10/16 23:59 97 Room Air 07/10/16 22:44 74 22 144/87 93 07/10/16 22:06 80 21 153/76 91 07/10/16 21:30 76 18 172/78 92 07/10/16 21:00 96 22 131/86 96 07/10/16 20:30 82 21 148/78 93 Room Air 07/10/16 20:07 97 Room Air 07/10/16 20:00 36.9 81 13 144/83 07/10/16 19:30 81 17 150/101 07/10/16 19:00 74 22 150/75 07/10/16 18:30 37.0 74 20 145/91 97 Room Air 07/10/16 17:30 74 20 147/80 95 Room Air Physical Exam General Appearance: WD/WN, no apparent distress Comments: Vitals: See above. General: Wd/WN obese AA female. No acute distress. Fatigued. HEENT: NCAT, PERRLA, EOMI. MMM. Neck supple, no adenopathy. CV: S1, S2, No murmur, rub or gallop. RRR. No carotid bruits. Peripheral pulses equal and intact. Pulm: Lungs clear to auscultation in upper and lower lobes bilaterally Abdomen: Non-tender, non-distended. Bowel sounds active. Obese. Neuro: Patient AAOx3. Vision and visual sharif intact. CN II-XII intact except for CN VII, which shows weakness in the cheek and around the mouth on the left side. Strength 5/5 RUE, RLE. Strength 3/5 RUE proximally, 5/5 distally, with equal produce inspector strength to R. LLE 4/5. Finger to nose without problem on R side, slow on L side with slow initiation and termination of movement. No hemineglect. No aphasia. Sensation intact diffusely. Laboratory Results Last 24 Hours Test 07/10/16 20:39 07/11/16 05:49 07/11/16 11:28 07/11/16 12:35 Bedside Glucose 127 mg/dl 122 mg/dl White Blood Count 8.21 K/uL Red Blood Count 3.99 M/uL Hemoglobin 11.7 g/dL Hematocrit 36.3 % Mean Corpuscular Volume 91.0 fL Mean Corpuscular Hemoglobin 29.3 pg Mean Corpuscular Hemoglobin Concent 32.2 g/dl Platelet Count 399 K/uL Mean Platelet Volume 8.4 fL Neutrophils (%) (Auto) 57.9 % Lymphocytes (%) (Auto) 30.7 % Monocytes (%) (Auto) 7.9 % Eosinophils (%) (Auto) 2.9 % Basophils (%) (Auto) 0.2 % Neutrophils # (Auto) 4.75 K/uL Lymphocytes # (Auto) 2.52 K/uL Monocytes # (Auto) 0.65 K/uL Eosinophils # (Auto) 0.24 K/uL Basophils # (Auto) 0.02 K/uL RDW Standard Deviation 43.1 fL RDW Coefficient of Variation 13.0 % Immature Granulocyte % (Auto) 0.4 % Immature Granulocyte # (Auto) 0.03 K/uL Prothrombin Time 10.6 SECONDS Prothromb Time International Ratio 1.0 Sodium Level 140 mmol/L Potassium Level 4.2 mmol/L Chloride Level 106 mmol/L Carbon Dioxide Level 30 mmol/L Anion Gap 4.0 mmol/L Blood Urea Nitrogen 17 mg/dl Creatinine 1.20 mg/dl Est Creatinine Clear Calc Drug Dose 76.4 ml/min Estimated GFR () 62.8 Estimated GFR (Non- 54.2 BUN/Creatinine Ratio 14.4 Random Glucose 131 mg/dl Calcium Level 8.6 mg/dl Test 07/11/16 16:03 Bedside Glucose 97 mg/dl Assessment and Plan Assessment and Plan: Ms Asya Vazquez is a 45 yo AA female with an almost 20 year history of htn now ~40 hours post tPA for an acute ischemic infarct of the posterior limb of the R internal capsule. Her neurologic symptoms continue to improve. Individual assessment and plan are as follows: 1. Acute Ischemic Stroke: Status: acute, improving. Patient is ~40 hours post TPA. Her facial droop has improved over the last 24 hours, L arm movement may have marginally improved, but definitely not deteriorated. Her weakness appears to be more proximal, with distal strength intact. Speech, PT, OT already consulted. Encouraged to hold conversations and engage in activities using L arm. Patient now on telemetry, will go to [facility] to begin inpatient rehab tomorrow. 81mg ASA started today for prevention. 2. HTN: Chronic, uncontrolled. Patient currently on valsartan 80, HCTZ 12.5. Only oral at this time. Will continue to montor pressures over night. 3. HLD: Will continue 80mg atorvostatin for risk reduction. 4. Obesity: Chronic. Both patient and are willing to talk about stroke prevention following acute phase of stroke. Weight loss through diet and exercise discussed, will reinforce in more detail tomorrow. 5. VTE prophylaxis: Contraindicated at this time due to tPA. 6. Disposition:D/C tomorrow to [facility] for inpatient rehab pending no further events tonight. Normal meals. Continued [facility] stay due to: other Discharge planning: uncertain, other
[2016-07-12] VITALS (13 sets, daily range): BP systolic 114–167; BP diastolic 71–91; PULSE 71–87; TEMP 36.6–37.3; O2SAT 91–98
[2016-07-12 06:41] LABS: BASO % 0.2 %; BASO ABS # 0.02 K/uL (0-0.2); COMPLETE YES; EOS % 2.4 %; HEMATOCRIT 36.8 % (37-47); IG% 0.3 %; LYMPH % 29.6 %; LYMPH ABS # 2.61 K/uL (1.2-3.4); MEAN CELL VOLUME 90.9 fL (80-100); MEAN CORPUSCULAR HEMOGLOBIN 29.1 pg (25-34); MEAN CORPUSCULAR HGB CONC 32.1 g/dl (32-36); MEAN PLATELET VOLUME 8.8 fL (7.4-10.4); MONO % 6.1 %; NEUT % 61.4 %; PLATELET COUNT 427 K/uL (130-400); RED BLOOD COUNT 4.05 M/uL (4.2-5.4); WHITE BLOOD COUNT 8.81 K/uL (4.8-10.8)
[2016-07-12 06:46] LABS: PROTHROMBIN TIME (PATIENT) 10.7 SECONDS (9.0-12.0)
[2016-07-12 07:18] LABS: BUN/CREATININE RATIO 15.5 (10-20); CALCIUM 9.5 mg/dl (8.5-10.1); CREATININE 1.2 mg/dl (0.60-1.20)
[2016-07-12] MEDS: ATORVASTATIN 40 MG TAB PO SCH (08:19)
[2016-07-12] MEDS: VALSARTAN 80 MG TAB PO SCH (08:20)
[2016-07-12] MEDS: ASPIRIN 81 MG ECTAB PO SCH (08:20)
[2016-07-12] MEDS: HYDROCHLOROTHIAZIDE 25 MG TAB PO SCH (08:20)
[2016-07-12] MEDS ORDERED: VALS160T58 PO (10:58)
[2016-07-12] MEDS ORDERED: ATOR80TA PO (10:58)
--- NOTE | 2016-07-12 11:36 | Discharge Instructions ---
Discharge Instructions Date of Service July 12, 2016. Admission Reason for Admission: Cva, Tpa Adm Status 24HR Chief Hospital Administrator Discharge Discharge Diagnosis / Problem: stroke Discharge Goals Goal(s): Decrease discomfort, Improve function, Diagnostic testing, Therapeutic intervention Activity Recommendations Activity Level: Assistance Required Therapies: Physical Therapy, Occupational Therapy, Speech Therapy . Additional Information Patient informed of condition: Yes Advance Directives: No DNR: No Level of Care: Acute Rehab Communicable Disease: No Prognosis: Improving Instructions / Follow-Up Instructions / Follow-Up 45 year old with uncontrolled hypertension and hyperlipidemia presents to the ER left sided facial droop and slurred speech s/p stroke call with administration of tPA at 3 hours 20 minutes post symptoms (21:52 07/09/16). Patient had some improvement in her symptoms after administration however her symptoms did persist. 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 Her MRA was unremarkable except for mild proximal bilat vertebral artery stenosis. She was admitted with a systolic blood pressure of > 200. She was placed on a nicardipine drip while in the ICU and transitioned to oral agents. CT head at 24 hours was negative for hemorrhage. As she had ongoing improvement in her functional status and blood pressures were stable it was decided she would be transferred to acute rehab for ongoing care. CVA s/p tPA - recommendations based on [place] neurologist Dr Rosenthal - MRI brain combo, MRA head, MRA neck combo - acute/ subacute posterior limb right int capsule infarct - mild proximal bilat vertebral artery stenosis - CT head at 24 hours post- neg for hemm - Echo - LV nm - LVH concentric moderate - EF 60-65% - no regional wall motion abnormalities - valves WNL - RV systolic pressure 23 mmHg - Speech consult completed - Consult neurology- recommend outpatient follow up Hypertension - Diovan 160/12.5 rx given - can increase to 160/25 if ongoing HTN as this was patient's original dose - Renal USG - no renal artery stenosis Hyperlipidemia - atorvastatin 80mg PO daily - rx given HBA1C 6.4%, Pre diabetic - Would benefit from rn diabetes educator - continue to encourage healthy lifestyle choice Code - Full Current Hospital Diet Patient's current hospital diet: AHA Diet (Heart Healthy) Discharge Diet Recommended Diet: AHA Diet (Heart Healthy), Low Sodium Diet (2gm Na) Pending Studies Studies pending at discharge: no Laboratory Results Hemoglobin A1c Test 07/10/16 06:10 Range/Units Estimated Average Glucose 137 mg/dl Hemoglobin A1c 6.4 H 4.5-5.6 % Lipid Panel Test 07/10/16 06:10 Range/Units Triglycerides Level 129 0-150 mg/dl Cholesterol Level 228 H 0-200 mg/dl HDL Cholesterol 62 mg/dl Cholesterol/HDL Ratio 3.7 LDL Cholesterol, Calculated 140 mg/dl Medical Emergencies . Who to Call and When: Medical Emergencies: If at any time you feel your situation is an emergency, please call 911 immediately. . Non-Emergent Contact Non-Emergency issues call your: Primary Care Provider . . "Provider Documentation" section prepared by Hilda Mendez. . Core Measure Problem Core Measures: Stroke Stroke Core Measures Reason no t-PA for Stroke: Treatment provided - N/A Reason no antithrom by day 2: Treatment provided - N/A Reason no antithrom at D/C: Treatment provided - N/A Reason no statin at D/C: Treatment provided - N/A Reason no anticoag w/a fib: Treatment not indicated
--- NOTE | 2016-07-12 14:11 | Medical Student: [facility] ---
Med Student Progress Note Date of Service July 12, 2016. Subjective Pt evaluation today including: conversation w/ patient, conversation w/ family (), physical exam, chart review, review of studies Voiding: no voiding problems Ms Asya Vazquez is a 45 yo female three days post acute infarct of the posterior limb of the R internal capsule. She has experienced L facial droop and weakness, L arm weakness, and mild L leg weakness that have all gradually improved since receiving tPA in the ED. She notes improvement in her smile but her L arm continues to be a "sloth". She notes some trouble swallowing with eating, but she was not seated totally vertically in bed while having this issue. Since her stroke, she has not had any headache, dizziness, or other symptoms suggestive of repeat ischemic or new hemorrhagic infarct. She denies chest pain , shortness of breath, or bladder or bowel problems. Her has been constantly at her side and is very supportive. He helps her with ADLs, but Asya states she is "not a baby" when he tries to do too much for her. She is agreeable to rehab at [facility] and is ready to get out of the hospital. Review of Systems Constitutional: No chills, No fatigue, No fever, No problem reported, No sweats , No weakness, No weight loss Eyes: No problem reported ENT: + trouble swallowing, No nasal symptoms, No sore throat, No tinnitus Respiratory: No cough, No dyspnea at rest, No shortness of breath, No sputum, No wheezing Cardiac: No PND, No chest pain, No claudication, No edema, No orthopnea, No palpitations Abdomen: No problem reported Musculoskeletal: No problem reported Female : No problem reported Neurologic: + weakness (LUE), No balance problems, No numbness/tingling, No vertigo Psychiatric: No problem reported Skin: No problem reported Objective Vital Signs Date Time Temp Pulse Resp B/P Pulse Ox O2 Delivery O2 Flow Rate FiO2 07/12/16 12:00 95 Room Air 07/12/16 11:37 37.0 79 18 114/71 91 Room Air 07/12/16 08:00 95 Room Air 07/12/16 07:44 37.2 71 18 144/91 94 Room Air 07/12/16 04:00 95 Room Air 07/12/16 03:25 36.7 87 18 147/90 95 Room Air 07/11/16 23:59 96 Room Air 07/11/16 23:38 36.8 79 22 158/97 96 Room Air 07/11/16 20:00 95 Room Air 07/11/16 19:07 37.3 84 16 157/94 95 Room Air 07/11/16 16:00 Room Air 07/11/16 15:19 37.0 76 16 152/99 96 Room Air Physical Exam General Appearance: WD/WN, no apparent distress Eyes: bilateral eyes EOMI, bilateral eyes PERRL, bilateral eyes normal inspection ENT: normal ENT inspection, hearing grossly normal, pharynx normal Neck: supple, no adenopathy, no JVD, no carotid bruits, trachea midline Respiratory/Chest: chest non-tender, lungs clear, normal breath sounds, no respiratory distress, no accessory muscle use Cardiovascular: regular rate, rhythm, no edema, no gallop, no JVD, no murmur Abdomen: normal bowel sounds, non tender, soft, no organomegaly Extremities: non-tender, no pedal edema, no calf tenderness, normal capillary refill Neurologic/Psychiatric: shank rander II-XII nml as tested, + abnormal shank rander II-XII (CN VII weak with L sided facial droop), + facial droop, + motor weakness (LUE), + pertinent finding (LUE continues to be weak. Able to raise arm over head, but termination of fine movements still imparied. Strength 3+/5 in LUE) Skin: normal color, warm/dry Laboratory Results Last 24 Hours Test 07/11/16 16:03 07/11/16 20:11 07/12/16 05:34 Bedside Glucose 97 mg/dl 105 mg/dl White Blood Count 8.81 K/uL Red Blood Count 4.05 M/uL Hemoglobin 11.8 g/dL Hematocrit 36.8 % Mean Corpuscular Volume 90.9 fL Mean Corpuscular Hemoglobin 29.1 pg Mean Corpuscular Hemoglobin Concent 32.1 g/dl Platelet Count 427 K/uL Mean Platelet Volume 8.8 fL Neutrophils (%) (Auto) 61.4 % Lymphocytes (%) (Auto) 29.6 % Monocytes (%) (Auto) 6.1 % Eosinophils (%) (Auto) 2.4 % Basophils (%) (Auto) 0.2 % Neutrophils # (Auto) 5.40 K/uL Lymphocytes # (Auto) 2.61 K/uL Monocytes # (Auto) 0.54 K/uL Eosinophils # (Auto) 0.21 K/uL Basophils # (Auto) 0.02 K/uL RDW Standard Deviation 43.6 fL RDW Coefficient of Variation 13.1 % Immature Granulocyte % (Auto) 0.3 % Immature Granulocyte # (Auto) 0.03 K/uL Prothrombin Time 10.7 SECONDS Prothromb Time International Ratio 1.0 Sodium Level 139 mmol/L Potassium Level 4.0 mmol/L Chloride Level 104 mmol/L Carbon Dioxide Level 29 mmol/L Anion Gap 6.0 mmol/L Blood Urea Nitrogen 19 mg/dl Creatinine 1.20 mg/dl Est Creatinine Clear Calc Drug Dose 75.5 ml/min Estimated GFR () 62.8 Estimated GFR (Non- 54.2 BUN/Creatinine Ratio 15.5 Random Glucose 140 mg/dl Calcium Level 9.5 mg/dl Assessment and Plan Assessment and Plan: Ms Asya Vazquez is a 45yo female on day 3 following acute CVA s/p tPA. She continues to have impaired LUE fine movements and strength as well as persistent but improving facial droop. Individual assessment and plan are as follows: 1. Acute CVA, s/p tPA. No further acute events. Patient's L sided symptoms have gradually improved and has been stable otherwise. Medications have been maximized for secondary risk reduction with 81mg asa, and BP and HLD control per below. Diet and exercise discussed with patient in depth. Value of acute and long-term rehab discussed and understood. Explained that this is a"tortoise and the hare" situation where slow and steady wins the race. 2. HTH: BP has been stable on 160mg valsartan and 12.5 HCTZ. Reinforced need to take this every day, careful to not make missing dose seem to be cause of this stroke. 3. HLD: On atorvastatin 80mg. Will continue. 4. Obesity: Diet and exercise discussed as main lifestyle modifications to reduce risk of repeat stroke, coronary disease, etc. Encouraged daily walks, either at work or in the evening. Discussed smaller portion meals with Mediterranean diet. Discussed value of drinking glass of water before each meal to make her seem carrera faster. 5. Disposition: Discharge to [facility]. Discharge planning: rehab hospital
--- NOTE | 2016-07-12 16:29 | Family Medicine Progress Note ---
Progress Note Date of Service July 12, 2016. Subjective Pt evaluation today including: conversation w/ patient, conversation w/ family , physical exam, chart review, lab review, review of studies Pain: 0/10 PO Intake: WNL Voiding: no voiding problems walking with a walker today and ongoing slow improvement of symptoms continued discussion about diet and exercise and patient and reflected understanding discussed plan for rehab and agreeable Constitutional: No fever Eyes: No worsening of vision ENT: No hearing loss Respiratory: No cough, No dyspnea on exertion, No shortness of breath, No sputum, No wheezing Cardiovascular: No chest pain Abdomen: No constipation, No diarrhea, No nausea, No pain, No vomiting Musculoskeletal: + problem reported (left muscle weakness ), No joint pain, No muscle pain Female : No dysuria, No hematuria Neurologic: + balance problems, + weakness, No numbness/tingling Psychiatric: No depression symptoms Heme: No abnormal bleeding/bruising Endo: + fatigue Medications Medications Administered Medications (Trade) Dose Ordered Sig/Douglas Route Start Time Stop Time Status Last Admin Dose Admin Nicardipine HCl 25 mg/Sodium Chloride 250 ml @ 0 mls/hr Q0M PRN IV 07/09/16 21:00 07/09/16 23:23 DC 07/09/16 21:15 5 MLS/HR Alteplase, Recombinant 81 mg/ Empty Bag 81 ml @ 81 mls/hr TODAY@2114 IV 07/09/16 21:15 07/09/16 22:14 DC 07/09/16 21:54 81 MLS/HR Alteplase, Recombinant/ Syringe (Activase Inj/ Syringe) 18 ml @ 9 mls/min TODAY@2114 IV 07/09/16 21:15 07/09/16 21:16 DC 07/09/16 21:54 9 MLS/MIN Atorvastatin Calcium 80 mg 80 mg QAM PO 07/10/16 09:00 08/09/16 08:59 07/12/16 08:19 80 MG Nicardipine HCl 25 mg/Sodium Chloride 250 ml @ 0 mls/hr Q0M PRN IV 07/09/16 23:10 07/10/16 08:11 DC 07/10/16 01:21 50 MLS/HR Sodium Chloride 1,000 ml @ 50 mls/hr Q20H IV 07/10/16 00:15 07/11/16 10:55 DC 07/10/16 19:52 50 MLS/HR Insulin Human Regular/Syringe (novoLIN-R/ Syringe) 2 ml @ 1 mls/min TODAY@0015 IV 07/10/16 00:15 07/10/16 00:16 DC 07/10/16 00:55 1 MLS/MIN Labetalol HCl (Normodyne IV) 5 mg STK-MED ONCE IV 07/10/16 14:46 07/10/16 14:47 DC 07/10/16 14:53 5 MG Valsartan (Diovan Tab) 80 mg DAILY PO 07/11/16 09:00 07/12/16 07:18 DC 07/11/16 09:13 80 MG Valsartan (Diovan Tab) 80 mg 1530 ONCE PO 07/10/16 15:30 07/10/16 15:31 DC 07/10/16 15:44 80 MG Hydrochlorothiazide (Hydrochlorothiazide Tab) 12.5 mg DAILY PO 07/11/16 09:00 08/10/16 08:59 07/12/16 08:20 12.5 MG Hydrochlorothiazide (Hydrochlorothiazide Tab) 12.5 mg 1530 ONCE PO 07/10/16 15:30 07/10/16 15:31 DC 07/10/16 15:45 12.5 MG Aspirin (Ecotrin Tab) 81 mg DAILY PO 07/12/16 09:00 08/11/16 08:59 07/12/16 08:20 81 MG Valsartan (Diovan Tab) 160 mg DAILY PO 07/12/16 09:00 08/11/16 08:59 07/12/16 08:20 160 MG Objective Vital Signs Date Time Temp Pulse Resp B/P Pulse Ox O2 Delivery O2 Flow Rate FiO2 07/12/16 16:09 36.6 76 16 135/79 98 Room Air 07/12/16 16:00 95 Room Air 07/12/16 12:00 95 Room Air 07/12/16 11:37 37.0 79 18 114/71 91 Room Air 07/12/16 08:00 95 Room Air 07/12/16 07:44 37.2 71 18 144/91 94 Room Air 07/12/16 04:00 95 Room Air 07/12/16 03:25 36.7 87 18 147/90 95 Room Air 07/11/16 23:59 96 Room Air 07/11/16 23:38 36.8 79 22 158/97 96 Room Air 07/11/16 20:00 95 Room Air 07/11/16 19:07 37.3 84 16 157/94 95 Room Air Physical Exam General Appearance: no apparent distress Eyes: normal inspection ENT: normal ENT inspection Neck: supple Respiratory/Chest: normal breath sounds, no respiratory distress, no accessory muscle use Cardiovascular: regular rate, rhythm, no murmur Abdomen: normal bowel sounds, non tender, soft Extremities: normal range of motion, + pertinent finding (slow movement of left UE ongoing however some improvement, 4/5 muscle strength noted) Neurologic/Psychiatric: alert, normal mood/affect, oriented x 3, + pertinent finding (ongoing slurred speech and left sided facial drooping) Skin: normal color, warm/dry, no rash Lymphatic: no adenopathy Laboratory Results Results Past 24 Hours Test 07/11/16 20:11 07/12/16 05:34 Range/Units Bedside Glucose 105 70-90 mg/dl White Blood Count 8.81 4.8-10.8 K/uL Red Blood Count 4.05 4.2-5.4 M/uL Hemoglobin 11.8 12.0-16.0 g/dL Hematocrit 36.8 37-47 % Mean Corpuscular Volume 90.9 80-100 fL Mean Corpuscular Hemoglobin 29.1 25-34 pg Mean Corpuscular Hemoglobin Concent 32.1 32-36 g/dl Platelet Count 427 130-400 K/uL Mean Platelet Volume 8.8 7.4-10.4 fL Neutrophils (%) (Auto) 61.4 % Lymphocytes (%) (Auto) 29.6 % Monocytes (%) (Auto) 6.1 % Eosinophils (%) (Auto) 2.4 % Basophils (%) (Auto) 0.2 % Neutrophils # (Auto) 5.40 1.4-6.5 K/uL Lymphocytes # (Auto) 2.61 1.2-3.4 K/uL Monocytes # (Auto) 0.54 0.11-0.59 K/uL Eosinophils # (Auto) 0.21 0-0.5 K/uL Basophils # (Auto) 0.02 0-0.2 K/uL RDW Standard Deviation 43.6 36.4-46.3 fL RDW Coefficient of Variation 13.1 11.5-14.5 % Immature Granulocyte % (Auto) 0.3 % Immature Granulocyte # (Auto) 0.03 0.00-0.02 K/uL Prothrombin Time 10.7 9.0-12.0 SECONDS Prothromb Time International Ratio 1.0 0.9-1.1 Sodium Level 139 136-145 mmol/L Potassium Level 4.0 3.5-5.1 mmol/L Chloride Level 104 98-107 mmol/L Carbon Dioxide Level 29 21-32 mmol/L Anion Gap 6.0 3-11 mmol/L Blood Urea Nitrogen 19 7-18 mg/dl Creatinine 1.20 0.60-1.20 mg/dl Est Creatinine Clear Calc Drug Dose 75.5 ml/min Estimated GFR () 62.8 Estimated GFR (Non- 54.2 BUN/Creatinine Ratio 15.5 10-20 Random Glucose 140 70-99 mg/dl Calcium Level 9.5 8.5-10.1 mg/dl Assessment and Plan 45 year old with uncontrolled hypertension and hyperlipidemia presents to the ER left sided facial droop and slurred speech s/p stroke call with administration of tPA at 3 hours 20 minutes post symptoms (21:52 07/09/16). Patient had some improvement in her symptoms after administration however her symptoms did persist. 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 Her MRA was unremarkable except for mild proximal bilat vertebral artery stenosis. She was admitted with a systolic blood pressure of > 200. She was placed on a nicardipine drip while in the ICU and transitioned to oral agents. CVA s/p tPA - recommendations based on [place] neurologist Dr Rosenthal - MRI brain combo, MRA head, MRA neck combo - acute/ subacute posterior limb right int capsule infarct - mild proximal bilat vertebral artery stenosis - CT head at 24 hours post- neg for hemm - Echo - LV nm - LVH concentric moderate - EF 60-65% - no regional wall motion abnormalities - valves WNL - RV systolic pressure 23 mmHg - Speech consult completed - Consult neurology- appreciate input Hypertension - aim BP <180 and dBP <105 - labetalol prn available - currently on valsartan and hctz - Renal USG - no renal artery stenosis Hyperlipidemia - atorvastatin 80mg PO daily HBA1C 6.4%, Pre diabetic - perioperative educator - will continue to encourage healthy lifestyle choice VTE Prophylaxis - SCDs for first [address] head Code - Full Disposition - transfer to tele, if bp stable will d/c to rehab potentially tomorrow Resident Physician Supervision Note: I interviewed and examined the patient. Discussed with Dr. Mendez and agree with findings and plan as documented in the note. Any exceptions or clarifications are listed here: None Documented By: Abran Hong feeling about the same no new problems awaiting rehab placmenet ros otherwise negative except for as above vitals noted nad breathing unlabored up and in chair out of bed more alert facial droop and arm weakness about the same CVA - related to HTN - s/p tPA - for rehab placement and BP control otherwise as above ongoing SCD for DVT proph Continued [facility] stay due to: other Discharge planning: rehab hospital
[2016-07-13 04:00] VITALS: O2SAT 95
[2016-07-13 04:42] VITALS: BP 146/79; PULSE 83; TEMP 36.7; O2SAT 94
[2016-07-13] MEDS: VALSARTAN 80 MG TAB PO SCH (07:56)
[2016-07-13] MEDS: ATORVASTATIN 40 MG TAB PO SCH (07:57)
[2016-07-13] MEDS: ASPIRIN 81 MG ECTAB PO SCH (07:57)
[2016-07-13] MEDS: HYDROCHLOROTHIAZIDE 25 MG TAB PO SCH (07:57)
[2016-07-13 08:01] VITALS: BP 158/76; PULSE 96; TEMP 36.8; O2SAT 96
--- NOTE | 2016-07-13 10:01 | Discharge Summary ---
Discharge Summary Date of Service July 13, 2016. (Hilda Mendez MD) Discharge Summary Admission Date: July 09, 2016 at 22:21 Discharge Date: July 13, 2016 Discharge Disposition: Rehab Principal Diagnosis: Stroke post TPA (Hilda Mendez MD) Medication Reconciliation New Medications: Valsartan/Hctz (Diovan Hct 160MG/12.5MG) 1 Tab Tab 1 TAB PO DAILY for 30 Days, #30 TAB 5 Refills Atorvastatin Calcium (Lipitor) 80 Mg Tab 1 TAB PO DAILY for 30 Days, #30 TAB 5 Refills Discontinued Medications: [Blood Pressure] () 1 TAB PO DAILY [Cholesterol] () 1 TAB PO DAILY Discharge Exam Patient has had significant improvement in her left arm movement, much faster today Anticipating d/c to [facility] and and her are excited for the transfer All questions were addressed and both were agreeable with plan and d/c Review of Systems: Constitutional: No fever Eyes: No worsening of vision ENT: No hearing loss Respiratory: No cough, No dyspnea at rest, No dyspnea on exertion, No shortness of breath, No sputum, No wheezing Cardiovascular: No chest pain Abdomen: No constipation, No diarrhea, No nausea, No pain, No vomiting Musculoskeletal: No joint pain, No muscle pain Genitourinary - Female: No dysuria Neurologic: + balance problems, + weakness, No numbness/tingling, No vertigo Endocrine: + fatigue Hematologic / Lymphatic: No abnormal bleeding/bruising Integumentary: No rash Physical Exam: General Appearance: no apparent distress Eyes: normal inspection ENT: normal ENT inspection, + pertinent finding (left sided facial droop slightly improved) Neck: supple Respiratory/Chest: normal breath sounds, no respiratory distress, no accessory muscle use Cardiovascular: regular rate, rhythm, no murmur Abdomen / GI: normal bowel sounds, non tender, soft Extremities: no calf tenderness, no pedal edema Neurologic/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 Patient had some improvement in her symptoms after administration however her symptoms did persist. 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 Her MRA was unremarkable except for mild proximal bilat vertebral artery stenosis. She was admitted with a systolic blood pressure of > 200. She was placed on a nicardipine drip while in the ICU and transitioned to oral agents. CT head at 24 hours was negative for hemorrhage. As she had ongoing improvement in her functional status and blood pressures were stable it was decided she would be transferred to acute rehab for ongoing care. CVA s/p tPA - recommendations based on [place] neurologist Dr Rosenthal - MRI brain combo, MRA head, MRA neck combo - acute/ subacute posterior limb right int capsule infarct - mild proximal bilat vertebral artery stenosis - CT head at 24 hours post- neg for hemm - Echo - LV nm - LVH concentric moderate - EF 60-65% - no regional wall motion abnormalities - valves WNL - RV systolic pressure 23 mmHg - Speech consult completed - Consult neurology- recommend outpatient follow up - Recommend follow up with hematology to complete the hypercoag work up Hypertension - Diovan 160/12.5 rx given - can increase to 160/25 if ongoing HTN as this was patient's original dose - Renal USG - no renal artery stenosis Hyperlipidemia - atorvastatin 80mg PO daily - rx given HBA1C 6.4%, Pre diabetic - 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 (Hilda Mendez MD) Resident Physician Supervision Note: I interviewed and examined the patient. Discussed with Dr. Mendez and agree with findings and plan as documented in the note. Any exceptions or clarifications are listed here: None Documented By: Abran Hong moving face and arm better no other new complaints ready to go to rehab, reiterated dx and treatments to pt and vitals noted nad less of a L facial droop better L arm movement CVA s/p tPA - HTN >>>>>> hyperlipid as main culprits -asa -PT/OT -secondary risk reduction as above stable for rehab Total Time Spent: Less than 30 minutes (Abran Hong D.O.) Discharge Instructions Please refer to the electronic Patient Visit Report (Discharge Instructions) for additional information. (Hilda Mendez MD)
[2016-07-13] MEDS ORDERED: FAMOTIDINE IV INJ 20 MG in DEXTROSE 5% 100ML 100 ML IV SCH (12:00)
[2016-07-13 12:06] VITALS: BP 149/66; PULSE 90; TEMP 36.5; O2SAT 96
[2016-07-13 12:40] VITALS: BP 149/66; PULSE 90; TEMP 36.5; O2SAT 96
[2016-07-16 14:38] LABS: B2 GLYCOPROTEIN IGA <9 SAU (<=20); B2 GLYCOPROTEIN IGG <9 SGU (<=20); B2 GLYCOPROTEIN IGM <9 SMU (<=20); LUPUS ANTICOAGULANT** TC36573X Negative (Negative)
== END 2016-07-13 15:37 | DRG 65 ==
LOC: ENRESERVTM → ENRESERVDT → C.ED 20:37 → EDBD 20:37 → C.MSICU 22:21 → C.2T 07-11 14:20
PROVIDERS: ADMIT Hospitalist; ATTEND Family Medicine
DX: I63.311 Cerebral infarction due to thrombosis of right middle cerebral artery (principal); G81.94 Hemiplegia, unspecified affecting left nondominant side; I63.331 Cerebral infarction due to thrombosis of right posterior cerebral artery; R29.703 NIHSS score 3; R29.810 Facial weakness; E78.5 Hyperlipidemia, unspecified; R47.81 Slurred speech; I10 Essential (primary) hypertension; G47.33 Obstructive sleep apnea (adult) (pediatric); Z92.82 Status post administration of tPA (rtPA) in a different facility within the last 24 hours prior to admission to current facility

== ENCOUNTER → 2017-05-01 | Outpatient (CLI) | payer OTHER ==
[~2017-05-01] MED LIST changes: -ATEN50TA8 PO; +ATOR80TA PO; -HYDR-3419 PO; -HYDR25TA4 PO; -LISI-461 PO; +VALS160T58 PO
--- NOTE | 2017-05-02 06:36 | PAP/PSG TECHNICIAN REPORT ---
Executive Office Manager Polysomnogram Report Study name: None Report date: 05/02/2017 Study date: 05/01/2017 Referring Physician: Dr. Madeline Blue M.D. Name: ERNE VAZQUEZ Interpreting Physician: Abran Shukla M.D. Date of : 1970 Executive Office Manager: Rosario Christianson RPS. Sex: Female Age: 46 Study Type: PSG Weight: 251 lbs 16 in Height: 46 years, Height 5' 6" Neck Circum: BMI: 40.51 Medications: ATORVASTATIN 80 MG, VALSARTAN-HCTZ 160-12.5 MG, FOLBIC 2.5-25-2 MG Patient History 46 yr-old female here for a baseline study. She has a history of snoring, and daytime sleepiness. Her [place] scale is 7. The test was started on room air. ETCO2 testing is included in this study. Room 3 Parameters Monitored NPSG: E1-M2, E2-M1, Fp1-M2, Fp2-M1, F3-M2, F4-M2, F4-M1, C3-M2, C4-M2, C4-M1, O1-M2, O2-M2, O2-M1, T3-M2, T4-M1, P3-M2, P4-M1, CHIN1, CHIN2, HR, EKG, Legs, PFLOW, SNOR, FLOW, CFLOW, Tidal Volume, THOR, ABDO, SpO2, PLTH, CPRESS, ETCO2 Wave, ETCO2, pH Sleep Architecture Sleep Stages Time at Lights Off 9:38:01 PM STAGES Time (min.) TST (%) Time at Lights On 5:41:31 AM Wake 118.5 -- Total Recording Time (TRT) 483.50 min. N1 53.0 15 Total Sleep Period (TSP) 391.5 min. N2 212.0 58 Total Sleep Time (TST) 365.0min. N3 35.5 10 Awake Time 118.5 min. REM 64.5 18 Wake after Sleep Onset 79.5 min. Sleep Efficiency (SE) 75 % Sleep Onset Latency (MELANI) 39.0 min. Number of Stage 1 Shifts None Awakenings 19 Stage Changes 79 Number of REM periods 4 REM 64.5 18 REM Latency 134.0 min. NREM 300.5 82 Body Position Analysis Supine Right Left Side Prone Vertical Total Sleep Time (min.) 205.3 122.0 81.1 203.10 0.0 0.0 Total Sleep Time (%) 44% 33% 22% 56 0% N/A% Total Sleep Time REM (min.) 61.5 3.0 0.0 None 0.0 0.0 Total Sleep Time NREM (min.) 100.4 119.0 81.1 None 0.0 0.0 Intermittent Wake (min.) 43.4 44.2 30.9 None 0.0 0.0 Total Sleep Period (%) 44% None None None None None Arousals Myoclonus (PLM) * Events Count Index Events Count Index Spontaneous 20 3 Events Awake (PLMW) 135 68.4 Respiratory 9 1.6 Events Asleep w/ Arousal (PLMA) 8 1.3 PLM 7 1 Events Asleep w/o Arousal (PLMS) 43 7.1 Snoring 6 1 Total Asleep 51 8.4 Total 42 7 Total 186 23 Respiratory Analysis * CA OA MA CH H RERA Total Count 0 38 0 0 82 1 120 Index 0.0 6.2 0.0 0 13.5 0 19.9 Mean Duration 0.0 15.3 0.0 0.00 16.5 18.1 16.2 Longest Duration 0.0 34.2 0.0 0.00 0.0 18.1 38.7 Respiratory Event Summary Total Supine ~Supine Right Left Prone REM NREM Apneas Count 38 29 9 8 1 N/A 30 8 Index 6.2 11 3 3.9 0.7 N/A 28 2 Hypopneas (4% Desat) Count 82 49 33 20 13 N/A 37 45 Index 13.5 18.2 10 9.8 9.6 N/A 34.4 9.0 Apneas & All Hypopneas Count 120 78 42 28 14 N/A 67 53 Index 19.7 29 12 14 10 N/A 62.3 10.6 Respiratory Events (Appliance Parts Counter Clerk+All Hyp+RERA) Count 120 79 42 28 14 N/A 67 53 Index 19.9 29 12 13.8 10.4 N/A 62.3 10.8 Respiratory Related Arousal Count 9 79 4 1 3 N/A 3 7 Index 1.6 2 1 0 2 N/A 3 1 Snoring Analysis Supine Right Left Prone REM NREM Total Snore duration 38.1 min Snores count 888 153 446 N/A 567 920 1,487 Snore mean duration 1.5 Sec Snores index 329 75 330 N/A 527.4 183.7 244.4 TST with snoring (%) 10.4% SpO2 Analysis Total REM NREM Awake <50% 0.0 min. 0.0 min. 0.0 min. 0.0 min. 51 - 60% 0.0 min. 0.0 min. 0.0 min. 0.0 min. 61 - 70% 0.1 min. 0.1 min. 0.0 min. 0.0 min. 71 - 80% 3.5 min. 3.5 min. 0.0 min. 0.0 min. 81 - 90% 228.5 min. 18.7 min. 178.7 min. 31.1 min. 91 - 100% 238.5 min. 42.1 min. 121.8 min. 74.7 min. Average 91 92 90 91 Minimum SpO2 69 69 79 84 Desaturation Event Index 28.3 67.0 20.0 28.9 # Desat. Events below 89% 127 42 62 23 Time(%) with Saturation below 89% 10.6 3.3 6.0 1.3 Time(min.) with Saturation below 89% 49.9 15.7 28.1 6.0 Heart Rate Analysis End Tidal CO2 Analysis Min (bpm) Max (bpm) Average (bpm) TSP (mins) % of TSP Awake 64 127 78 Above 55 mmHg 0.0 0.0 NREM 60 109 76 50-55 mmHg 0.3 0.1 REM 55 92 76 45-50 mmHg 117.8 32.3 Overall 55 109 76 40-45 mmHg 233.0 63.8 35-40 mmHg 10.7 2.9 30-35 mmHg 2.7 0.7 Average ETCO2 0.1 Supplemental O2 Values Minimum O2 level: None Value Start Time End Time Executive Office Manager Comments Ms. Vazquez slept in the right, left, and supine positions. No cardiac arrhythmias or PLMs noted. No bruxism noted. Snoring was noted and scored as a 2 on a scale of 1 through 5. (0=no snoring, 5=snoring loud enough to be heard through a closed door or down the ascencio way). She woke up once to use the restroom during the night. Ms. Vazquez stated that she slept ok. The final report will be interpreted and signed by a sleep physician. The completed physician report will then be placed in the patient medical record. Therapy (cm H2O) 0 TIB (min.) 483.5 TST (min.) 365.0 Sleep Onset (min.) 39.0 REM Onset From Sleep (min.) 134.0 Sleep Efficiency % 75 Wakefulness (%) 25 Wakefulness (min.) 118.5 NREM 1 (%) 15 NREM 1 (min.) 53.0 NREM 2 (%) 58 NREM 2 (min.) 212.0 NREM 3 (%) 10 NREM 3 (min.) 35.5 REM (%) 18 REM (min.) 64.5 # Arousals 42 Arousal Index 7 # Snore 1,487 Snore Index 244.4 AHI 19.7 AHI Supine 29 AHI Non-Supine 12 NREM AHI 10.6 REM AHI 62.3 RDI 19.9 # Obstructive Apnea 38 # Central Apnea 0 # Mixed Apnea 0 # Hypopneas 82 RERAs 1 Total Respiratory Events 121 Time Below SpO2 89% (min.) 43.9 Mean NREM SpO2 (%) 90 Mean REM SpO2 (%) 92 Mean Sleep SpO2 (%) 91 Min NREM SpO2 (%) 79 Min REM SpO2 (%) 69 Position Supine (min.) 205.3 Position Non-supine (min.) 203.1 LM Index Sleep 8.4 LM Index NREM 8.8 LM Index REM 6.5 Mean Heart Rate (bpm) 76 Min Heart Rate (bpm) 55
--- NOTE | 2017-05-09 17:02 | POLYSOMNOGRAPH REPORT ---
CLINICAL DATA: A 46-year-old female with a BMI of 40.[address] Blue with a history of snoring and daytime sleepiness. Her [place] sleepiness score was 7/24. SLEEP ARCHITECTURE: Total sleep period was 391.5 minutes. Total sleep time was 365 minutes divided between 300.5 minutes of non-REM sleep and 64.5 minutes of REM sleep. Sleep onset latency was delayed at 39 minutes. REM latency was 134 minutes. Sleep efficiency was reduced at 75%. Wake after sleep onset was 79.5 minutes. Sleep consisted of stage N1 15%, stage N2 58%, stage N3 10%, and REM 18%. AROUSAL DATA: 43 arousals were recorded for an index of 7 per hour. PLM DATA: 51 limb movements during sleep were noted for an index of 8.4 per hour with arousal index of 1.3 per hour. RESPIRATORY DATA: Moderate sleep apnea was documented. The AHI was 19.7. There were 38 obstructive apneic episodes. The longest apneic episode was 34.2 seconds. There were 82 hypopneic episodes with a mean duration of 16.5 seconds. OXIMETRY DATA: Nocturnal hypoxemia was seen. Oxygen lisa was 79%. Mean saturation was 91%. Time below 89% was 49.9 minutes. EKG: Heart ranged from 55-109 beats per minute. No arrhythmias were noted. COTTON CANDY MAKER'S COMMENTS: The patient slept in the right, left, and supine position. Snoring was mild, rated 2 on a scale of 1-5. IMPRESSION: Moderate sleep apnea/hypopnea with an AHI of 19.7 with nocturnal hypoxemia with an oxygen lisa of 79%. RECOMMENDATIONS: The patient may benefit from use of an oral appliance, use of auto CPAP, or repeat sleep study with CPAP. Clinical correlation is needed. [facility]
== END | disposition home or self-care (01) ==
LOC: C.NEUR 20:00
PROVIDERS: ATTEND Internal Medicine
DX: G47.33 Obstructive sleep apnea (adult) (pediatric) (principal); G47.36 Sleep related hypoventilation in conditions classified elsewhere